=== PATIENT | female | born 1950 | race Two or more races ===

== ENCOUNTER 2017-09-02 13:08 | Emergency (ER) | payer MEDICARE, OTHER ==
[2017-09-02 13:43] LABS: ADD MAN DIFF? NO
[2017-09-02 13:49] LABS: BASO % 1 % (0-3); EOS # 0.2 x10^3/uL (0.0-0.7); EOS % 5 % (0-3); HEMATOCRIT 36.8 % (36.0-47.0); HEMOGLOBIN 12.5 g/dL (12.0-15.5); LYMPH # 0.8 x10^3/uL (1.0-4.8); LYMPH % 17 % (24-48); MEAN CORPUSCULAR HEMOGLOBIN 31 pg (25-35); MEAN CORPUSCULAR HGB CONC 34 g/dL (31-37); MEAN CORPUSCULAR VOLUME 92 fL (79-100); MONO # 0.5 x10^3/uL (0.0-1.1); MONO % 11 % (0-9); NEUT # 2.9 x10^3uL (1.8-7.7); NEUT % 66 % (31-73); PLATELET COUNT 161 x10^3/uL (140-400); RED BLOOD COUNT 4.01 x10^6/uL (3.50-5.40); RED CELL DISTRIBUTION WIDTH 13.2 % (11.5-14.5); WHITE BLOOD COUNT 4.5 x10^3/uL (4.0-11.0)
[2017-09-02 14:01] LABS: ANION GAP 10 (6-14); BLOOD UREA NITROGEN 11 mg/dL (7-20); BUN/CREATININE RATIO 18 (6-20); CALCIUM 8.2 mg/dL (8.5-10.1); CARBON DIOXIDE 27 mmol/L (21-32); CHLORIDE 102 mmol/L (98-107); CREATININE 0.6 mg/dL (0.6-1.0); GFR 100.3; GLUCOSE 102 mg/dL (70-99); POTASSIUM 3.9 mmol/L (3.5-5.1); SODIUM 139 mmol/L (136-145)
[2017-09-02 14:06] LABS: ALBUMIN 3.3 g/dL (3.4-5.0); ALK PHOS 76 U/L (46-116); AST (SGOT) 21 U/L (15-37); TOTAL BILIRUBIN 0.5 mg/dL (0.2-1.0); TOTAL PROTEIN 6.7 g/dL (6.4-8.2)
[2017-09-02 14:08] LABS: ALT (SGPT) < 6 U/L (14-59)
[2017-09-02 14:15] LABS: INFLUENZA A PATIENT POSITIVE (NEGATIVE); INFLUENZA B PATIENT NEGATIVE (NEGATIVE); OBC FLU VALID
[2017-09-02] MEDS ORDERED: OSELTAMIVIR 75 MG CAPSULE PO (14:30)
[2017-09-02] MEDS: OSELTAMIVIR 30 MG CAPSULE PO (15:03)
== END 2017-09-02 15:24 | disposition home or self-care (01) ==
LOC: ER 13:08
DX: R55 Syncope and collapse (principal); J09.X2 Influenza due to identified novel influenza A virus with other respiratory manifestations; E78.00 Pure hypercholesterolemia, unspecified; G20 Parkinson's disease; F41.9 Anxiety disorder, unspecified; Z88.0 Allergy status to penicillin
CPT/HCPCS: 36415; 71045; 80053; 85025; 87804; 87804-59; 93005; 99285-25

== ENCOUNTER 2018-05-25 10:38 | Emergency (ER) | payer MEDICARE, OTHER ==
[~2018-05-25] VITALS: Ht 149.9 cm; Wt 61.2 kg
[~2018-05-25 10:38] MED LIST: OSEL30CA PO
--- NOTE | 2018-05-25 10:56 | PHYS DOC ---
Past Medical History Past Medical History: Anxiety, Bipolar, Constipation, Depression, High Cholesterol, Hypotension, Other Additional Past Medical Histor: PARKINSONS, INSOMNIA Past Surgical History: Appendectomy, Tubal ligation, Other Additional Past Surgical Histo: R WRIST, L SHOULDER, ANKLE Alcohol Use: None Drug Use: None Adult General Chief Complaint Chief Complaint: MECHANICAL FALL HPI HPI 67-year-old female presents to ER via EMS following a mechanical fall. Patient reports she has history of Parkinson's and has a shuffling gait which caused her to lose her balance prior to the fall. Patient reports she did strike her head denies any head or neck pain. She denies any loss of consciousness, vision changes, dizziness, or lightheadedness. Patient has complaints of right upper mid arm pain which she reports she struck on her bed during the fall. Review of Systems Review of Systems Constitutional: Denies fever or chills [] Eyes: Denies change in visual acuity, redness, or eye pain [] HENT: Denies nasal congestion or sore throat [] Respiratory: Denies cough or shortness of breath [] Cardiovascular: No additional information not addressed in HPI [] GI: Denies abdominal pain, nausea, vomiting, bloody stools or diarrhea [] : Denies dysuria or hematuria [] Musculoskeletal: Denies back pain or joint pain [] Integument: Denies rash or skin lesions [] Neurologic: Denies headache, focal weakness or sensory changes [] Endocrine: Denies polyuria or polydipsia [] All other systems were reviewed and found to be within normal limits, except as documented in this note. Current Medications Current Medications Current Medications Medications (Trade) Dose Ordered Sig/Ambreen Start Time Stop Time Status Last Admin Dose Admin Acetaminophen/ Hydrocodone Bitart (Lortab 5/325) 1 tab 1X ONCE 05/25/18 11:00 05/25/18 11:01 DC 05/25/18 11:25 1 TAB Allergies Allergies Allergies Coded Allergies Type Severity Reaction Last Updated Verified Penicillins Allergy Intermediate 09/02/17 Yes Physical Exam Physical Exam Constitutional: Well developed, well nourished, no acute distress, non-toxic appearance. [] HENT: Normocephalic, atraumatic, bilateral external ears normal, oropharynx moist, no oral exudates, nose normal. [] Eyes: PERRLA, EOMI, conjunctiva normal, no discharge. [] Neck: Normal range of motion, no tenderness, supple, no stridor. [] Cardiovascular:Heart rate regular rhythm, no murmur [] Lungs & Thorax: Bilateral breath sounds clear to auscultation [] Abdomen: Bowel sounds normal, soft, no tenderness, no masses, no pulsatile masses. [] Skin: Warm, dry, no erythema, no rash. [] Back: No tenderness, no CVA tenderness. [] Extremities: No tenderness, no cyanosis, no clubbing, ROM intact, no edema. [] Neurologic: Alert and oriented X 3, normal motor function, normal sensory function, no focal deficits noted. [] Psychologic: Affect normal, judgement normal, mood normal. [] Current Patient Data Vital Signs Vital Signs Date Time Temp Pulse Resp B/P (MAP) Pulse Ox O2 Delivery O2 Flow Rate FiO2 05/25/18 11:25 20 05/25/18 10:48 97.6 59 113/66 (82) 98 Room Air 97.6 EKG EKG [] Radiology/Procedures Radiology/Procedures PROCEDURE: HUMERUS RIGHT Right humerus, 2 views, 05/25/2018: HISTORY: Pain after a fall No fracture or bony abnormality is detected. IMPRESSION: No acute right humeral abnormality is identified. Right hip, 2 views, 05/25/2018: No fracture or dislocation is identified. The hip joint is well-maintained. IMPRESSION: No acute right hip abnormality is detected. Electronically signed by: Weston Freitas MD (05/25/2018 12:02 PM) [facility] DICTATED and SIGNED BY: WESTON FREITAS MD DATE: 05/25/18 1201 Course & Med Decision Making Course & Med Decision Making Pertinent Imaging studies reviewed. (See chart for details) 1152: Discussed pt's case and xrays with Dr. Casillas who viewed images with no obvious displaced fxs. This was discussed with pt and plans for sling to rt arm. Pt encouraged to use cane/walker for stability at home. Dragon Disclaimer Dragon Disclaimer This electronic medical record was generated, in whole or in part, using a voice recognition dictation system. Departure Departure Impression: Primary Impression: Fall Additional Impressions: Injury of right upper arm Injury of right hip Disposition: HOME, SELF-CARE Condition: STABLE Referrals: COCO BECKFORD (PCP) JELLY YOON MD orthopedic doctor for follow-up Patient Instructions: Arm Sling Use, [id number], Contusion, Fall Prevention and Home Safety, Hip Injury Additional Instructions: Use walker or cane at home for walking stability. If symptoms persist follow-up with orthopedic doctor for further evaluation/ care. Tylenol and/or ibuprofen as needed for pain. Scripts Hydrocodone/Apap 5-325 (NORCO 5-325 TABLET) 1 Each Tablet 1 TAB PO PRN Q6HRS PRN for PAIN, #8 TAB 0 Refills Prov: ANDREEA HIDALGO APRN 05/25/18 Problem Qualifiers ANDREEA HIDALGO APRN May 25, 2018 10:56
[2018-05-25] MEDS ORDERED: HYDROcodone/APAP 5/325MG 1 TAB TABLET PO ONE (11:00)
[2018-05-25 12:00] VITALS: BP 110/71
--- NOTE | 2018-05-25 12:05 | RAD ---
Right humerus, 2 views, 05/25/2018: HISTORY: Pain after a fall No fracture or bony abnormality is detected. IMPRESSION: No acute right humeral abnormality is identified. Right hip, 2 views, 05/25/2018: No fracture or dislocation is identified. The hip joint is well-maintained. IMPRESSION: No acute right hip abnormality is detected. Electronically signed by: Weston Overton MD (05/25/2018 12:02 PM) [facility]
--- NOTE | 2018-05-25 12:06 | RAD ---
Right humerus, 2 views, 05/25/2018: HISTORY: Pain after a fall No fracture or bony abnormality is detected. IMPRESSION: No acute right humeral abnormality is identified. Right hip, 2 views, 05/25/2018: No fracture or dislocation is identified. The hip joint is well-maintained. IMPRESSION: No acute right hip abnormality is detected. Electronically signed by: Weston Overton MD (05/25/2018 12:02 PM) [facility]
[2018-05-25] MEDS ORDERED: HYDR-971 PO (12:11)
[2018-05-26] MEDS ORDERED: LEVO25TA4 PO (15:39)
[2018-05-26] MEDS ORDERED: ATOR20TA58 PO (17:41)
[2018-05-26] MEDS ORDERED: LORA10TA3 PO (17:41)
[2018-05-26] MEDS ORDERED: LEVO50TA5 PO (17:41)
[2018-05-26] MEDS ORDERED: CARB1TAB2 PO ×2 (17:41→17:47)
[2018-05-26] MEDS ORDERED: LITH150C PO (17:41)
[2018-05-26] MEDS ORDERED: HYDR-2758 PO (17:41)
[2018-05-26] MEDS ORDERED: DULO60CA44 PO (19:56)
[2018-05-26] MEDS ORDERED: LITH300C PO (19:56)
== END 2018-05-25 12:20 | disposition home or self-care (01) ==
LOC: ER 10:38
DX: S49.91XA Unspecified injury of right shoulder and upper arm, initial encounter (principal); S79.911A Unspecified injury of right hip, initial encounter; F31.9 Bipolar disorder, unspecified; E78.00 Pure hypercholesterolemia, unspecified; I10 Essential (primary) hypertension; G20 Parkinson's disease; Z98.51 Tubal ligation status; Z90.89 Acquired absence of other organs; Z98.890 Other specified postprocedural states; Z88.0 Allergy status to penicillin; W18.09XA Striking against other object with subsequent fall, initial encounter; Y93.89 Activity, other specified; Y92.89 Other specified places as the place of occurrence of the external cause; Y99.8 Other external cause status
CPT/HCPCS: 73060; 73502; 99284

== ENCOUNTER 2018-05-26 12:01 | Inpatient (IN) | payer MEDICARE, OTHER ==
[~2018-05-26] VITALS: Ht 151.1 cm; Wt 61.2 kg
[~2018-05-26 12:01] MED LIST changes: +HYDR-971 PO
[2018-05-26] MEDS ORDERED: HYDROcodone/APAP 10/325 1 TAB TABLET PO ONE (13:15)
--- NOTE | 2018-05-26 14:48 | RAD ---
SHOULDER 2+V RIGHT, ELBOW RIGHT 3V Clinical Indication: RIGHT SHOULDER PAIN AFTER FALL X2 DAYS AGO. Comparison: Right humerus, 2 views, prior day. Findings: There is acute traumatic nondisplaced fracture of the greater tuberosity of the right humerus. No glenohumeral dislocation. AC joint is intact. There is no acute fracture or dislocation of the elbow. There is no elbow joint effusion. No soft tissue swelling is identified. Bilateral battery packs and leads presumably for deep brain stimulator are noted in the chest. Visualized lungs are clear. IMPRESSION: Acute traumatic nondisplaced fracture of the greater tuberosity. Electronically signed by: Juan J Diaz MD (05/26/2018 2:45 PM) [facility]
--- NOTE | 2018-05-26 15:28 | PHYS DOC ---
Past Medical History Past Medical History: Anxiety, Bipolar, Constipation, Depression, High Cholesterol, Hypotension, Other Additional Past Medical Histor: PARKINSONS, INSOMNIA Past Surgical History: Appendectomy, Tubal ligation, Other Additional Past Surgical Histo: R WRIST, L SHOULDER, ANKLE, STIMULATOR IN BRAIN Alcohol Use: None Drug Use: None Adult General Chief Complaint Chief Complaint: SHOULDER INJURY HPI HPI Patient is a 67 year old Female with history of Parkinson's who presents to the ER for evaluation. Patient seen yesterday after mechanical fall with complaint of mid humerus shaft pain. Patient had x-ray that was reassuring and discharged with short course of hydrocodone. Patient reporting uncontrolled pain and presents tearful. Patient continues to report pain as mid shaft. Patient denies any distal numbness or tingling. Patient has significant decreased mobility at baseline secondary to Parkinson's. Pain is constant, sharp , 10 out of 10 Review of Systems Review of Systems Constitutional: Denies fever or chills [] Eyes: Denies change in visual acuity, redness, or eye pain [] HENT: Denies nasal congestion or sore throat [] Respiratory: Denies cough or shortness of breath [] Cardiovascular: no chest pain, no orthopnea, no lower extremity edema proximal GI: Denies abdominal pain, nausea, vomiting, bloody stools or diarrhea [] : Denies dysuria or hematuria [] Musculoskeletal:muscle and joint pain present Integument: Denies rash or skin lesions [] Neurologic: Denies headache, focal weakness or sensory changes [] Endocrine: Denies polyuria or polydipsia [] All other systems were reviewed and found to be within normal limits, except as documented in this note. Current Medications Current Medications Current Medications Medications (Trade) Dose Ordered Sig/Ambreen Start Time Stop Time Status Last Admin Dose Admin Acetaminophen/ Hydrocodone Bitart (Lortab 10/325) 1 tab 1X ONCE 05/26/18 13:15 05/26/18 13:16 DC 05/26/18 13:22 1 TAB Allergies Allergies Allergies Coded Allergies Type Severity Reaction Last Updated Verified Penicillins Allergy Intermediate 09/02/17 Yes Physical Exam Physical Exam Constitutional: Well developed, well nourished, chronically ill appearing, moderate distress, tearful HENT: Normocephalic, atraumatic, Eyes: PERRLA, EOMI, Neck: no stridor. [] Cardiovascular:Heart rate regular rhythm, no murmur [] Lungs & Thorax: Bilateral breath sounds clear to auscultation [] Abdomen: Bowel sounds normal, soft, no tenderness, no masses, no pulsatile masses. [] Skin: Warm, dry, no erythema, no rash. [] Back: No tenderness, no CVA tenderness. [] Extremities: Diffuse tenderness across R shoulder, Mid-shaft R humerus, No R elbow tenderness. Bilateral radial pulse +2/4. significant tremor bilaterally. Significant hypertonicity of bilateral upper extremities with cog wheel rigidity Neurologic: Alert and oriented X 3 Psychologic: Affect normal, judgement normal, mood normal. [] Current Patient Data Vital Signs Vital Signs Date Time Temp Pulse Resp B/P (MAP) Pulse Ox O2 Delivery O2 Flow Rate FiO2 05/26/18 13:30 60 125/64 (84) 97 Room Air 05/26/18 13:22 20 05/26/18 12:12 97.8 97.8 EKG EKG [] Radiology/Procedures Radiology/Procedures R shoulder XR IMPRESSION: Acute traumatic nondisplaced fracture of the greater tuberosity. Electronically signed by: Juan J Diaz MD (05/26/2018 2:45 PM) [facility][] R Elbow XR IMPRESSION: Acute traumatic nondisplaced fracture of the greater tuberosity. Course & Med Decision Making Course & Med Decision Making Pertinent Labs and Imaging studies reviewed. (See chart for details) []Pt with acute fracture greater tuberosity now noted on imaging today.Pain improved but continues to have painful spasms of RUE resulting uncontrolled pain 2/2 fracture. with baseline difficulty with mobility secondary to her Parkinson's disease. Patient reports uncontrolled pain at home with increased fear a fall secondary to her increased difficulty with mobility secondary to pain. Will admit for continued management of pain and evaluation. On discussion with patient and she wishes to be a DNR/DNI. Discussed with Dr. Valencia senior applications engineer for hospital service who is agreeable to admission.\ Patient not placed in sling as she feels that this position increases her pain. Dragon Disclaimer Dragon Disclaimer This electronic medical record was generated, in whole or in part, using a voice recognition dictation system. Departure Departure Impression: Primary Impression: Humerus head fracture Disposition: ADMITTED INPATIENT Admitting Physician: Angela Valencia Condition: GUARDED Referrals: COCO BECKFORD (PCP) CYRIL REED DO May 26, 2018 15:28
[2018-05-26] MEDS ORDERED: diazePAM 5 MG TABLET PO ONE (15:30)
[2018-05-26] MEDS ORDERED: LEVO25TA4 PO (15:39)
[2018-05-26 16:37] VITALS: BP_SYST 125
--- NOTE | 2018-05-26 17:36 | HP ---
ADMIT DATE: 05/26/2018 CHIEF COMPLAINT: Altered shoulder pain. HISTORY OF PRESENT ILLNESS: The patient is a pleasant 67-year-old female who fell yesterday. She presented to the ER for evaluation. Imaging study really did not confirm anything. She was sent home. Today, she represented to the hospital with increasing pain. We have more imaging now, we do see the shoulder fracture. She has a proximal humerus fracture. I discussed the case with the ER physician. We are going to admit the patient and consult Orthopedics. PAST MEDICAL HISTORY: Parkinson's, bipolar, constipation, depression, hyperlipidemia, hypotension, insomnia, tubal ligation, right wrist surgery, left shoulder surgery, ankle surgery, stimulator in the brain. ALLERGIES: PENICILLIN. FAMILY HISTORY: Hypertension. SOCIAL HISTORY: She is . She does not drink, smoke or take drugs. MEDICATIONS: Reviewed, please refer to the MRAD. REVIEW OF SYSTEMS: GENERAL: No history of weight change, weakness or fevers. SKIN: No bruising, hair changes or rashes. EYES: No blurred, double or loss of vision. NOSE AND THROAT: No history of nosebleeds, hoarseness or sore throat. HEART: No history of palpitations, chest pain or shortness of breath on exertion. LUNGS: Denies cough, hemoptysis, wheezing or shortness of breath. GASTROINTESTINAL: Denies changes in appetite, nausea, vomiting, diarrhea or constipation. GENITOURINARY: No history of frequency, urgency, hesitancy or nocturia. NEUROLOGIC: Denies history of numbness, tingling, tremor or weakness. PSYCHIATRIC: No history of panic, anxiety or depression. ENDOCRINE: No history of heat or cold intolerance, polyuria or polydipsia. EXTREMITIES: She complains of right arm pain and shoulder pain. PHYSICAL EXAMINATION: VITAL SIGNS: Temperature afebrile, pulse 60, respirations 20, blood pressure 117/59, O2 sat 95% on room air. GENERAL: She is alert, cooperative, little anxious. Her is present. He is good support for her. HEART: Normal S1, S2. LUNGS: Clear. ABDOMEN: Soft. EXTREMITIES: The right arm is tender to touch at the shoulder. ENDOCRINE: No thyromegaly. LYMPHATICS: No cervical nodes. HEMATOPOIETIC: No bruising. NEUROLOGICAL: She is shaking. LABORATORY DATA: Pending. ASSESSMENT AND PLAN: Fall with right shoulder fracture. The patient has been admitted. We will consult Orthopedics, p.r.n. narcotics, p.r.n. Valium. Continue home medicines, frequent labs, PT, OT. DELMA ARMAS DO DR: KANDACE/kennedy JOB#: [id number] / [id number]
[2018-05-26] MEDS ORDERED: LORA10TA3 PO (17:41)
[2018-05-26] MEDS ORDERED: LITH150C PO (17:41)
[2018-05-26] MEDS ORDERED: ATOR20TA58 PO (17:41)
[2018-05-26] MEDS ORDERED: LEVO50TA5 PO (17:41)
[2018-05-26] MEDS ORDERED: CARB1TAB2 PO ×2 (17:41→17:47)
[2018-05-26] MEDS ORDERED: HYDR-2758 PO (17:41)
[2018-05-26 19:25] VITALS: BP 121/57
[2018-05-26] MEDS: MORPHINE SULFATE 2 MG/ML VIAL. IV PRN (19:25)
[2018-05-26] MEDS ORDERED: LITH300C PO (19:56)
[2018-05-26] MEDS ORDERED: DULO60CA44 PO (19:56)
[2018-05-26] MEDS: CETIRIZINE HCL 10 MG TABLET. PO SCH (21:18)
[2018-05-26] MEDS: DULoxetine HCL 30 MG CAPSULE.DR PO SCH (21:18)
[2018-05-26] MEDS: LITHIUM CARBONATE 300 MG CAPSULE PO SCH (21:18)
[2018-05-26] MEDS: ATORVASTATIN CALCIUM 20 MG TABLET PO SCH (21:18)
[2018-05-26] MEDS: CARBIDOPA/LEVODOPA 25/100MG TABLET PO SCH (21:26)
[2018-05-26 23:27] VITALS: BP 102/48
[2018-05-27] MEDS: MORPHINE SULFATE 2 MG/ML VIAL. IV PRN ×2 (00:28→04:24)
--- NOTE | 2018-05-27 01:56 | CONS ---
DATE OF CONSULTATION: 05/26/2018 REASON FOR CONSULTATION: Right shoulder pain. REQUESTING PHYSICIAN: Dr. Valencia. HISTORY OF PRESENT ILLNESS: The patient is a 67-year-old female who was diagnosed with Parkinson's disease many years ago. She actually presented to the Emergency Room for evaluation after a fall with right shoulder pain. She has had several falls in the past due to her instability and balance problems with the Parkinson's, but this is the first time that she really broke something. She has had gait problems for quite some time. Normally, she does not walk with any type of assistive device that she said that tended to get into her way as well. In terms of the treatment of the Parkinson's, she had an implantable device that it worked fairly well on her tremors that are primarily on the left side. She also indicates that she had some dyskinesia and problems that necessitated adjustment of the device and her tremors have since returned. She says even prior to that; however, her right arm has been weak and has been less functional. Currently, she has significant tremor in the arm, trying to feed herself with her left hand as I came in for examination. She said initially, it was incorrectly discerned that she did not have a fracture and later came back with more imaging showing proximal humerus fracture. PAST MEDICAL HISTORY: Significant for Parkinson's disease, bipolar disorder, depression, insomnia, hyperlipidemia, hypotension, history of some constipation. PAST SURGICAL HISTORY: Significantly for the brain stimulator, previous ankle and left shoulder surgery, right wrist surgery, tubal ligation. ALLERGIES: INCLUDE PENICILLIN. MEDICATIONS: List is removed. FAMILY HISTORY: High blood pressure. SOCIAL HISTORY: She is , lives at home. Denies smoking, alcohol or drug use. REVIEW OF SYSTEMS: Really this is covered by the above. She denies any head injury or worsening of her dyskinesia or tremor, status post a fall. Her biggest problem is being unable to use the right arm and significant for the right shoulder pain. She also again indicates some increased tremors after the last adjustment of the brain stimulator, although it did help the dyskinesia issues. She denies any head injury, radiating pain in the extremities and no lower extremity weakness. PHYSICAL EXAMINATION: EXTREMITIES: She is tender on palpation over the right proximal humerus. This is worse with any movement, although she is able to flex and extend her elbow with the arm at the side with some effort because it is weak overall in the right upper extremity. She does have a little bit of intentional tremor present on the right side, but much more severe on the left. Left is currently used as her more dominant arm, but she has otherwise normal motion stability of shoulder, elbow and wrist bilaterally. Well-healed incision on her right wrist from previous surgery as well. No instability, malalignment or tenderness at the joints of the bilateral hips, knees and ankles. IMAGING: X-rays show a nondisplaced proximal humerus fracture, primarily involving the greater tuberosity. Glenohumeral joint is otherwise well maintained. IMPRESSION: 1. Nondisplaced right proximal humerus fracture. 2. Parkinsonism with balance difficulties. TREATMENT PLAN: I had gone over with her the fact that I expect nonoperative treatment provided that she does not have late displacement of her fracture and also that she can use a sling for comfort, but can also use her arm, especially with the elbow at the side to help do fine motor use that may help her eating or other fine motor activities that she needs to do. Finally, we talked about something that may help assist her in terms of her balance issues and stability. I noted that this may not work as well initially as it may down the line after further healing of her right shoulder; however, in terms of a walker, which she was unable to really negotiate before and gotten her way, I talked about the possibility and maybe we could test a walker with a platform attachments on both arms, such that she could rest her forearms down and grasp that may inhibit some of the tremor and instability issues that she had had with a walker, getting away from her, hopefully physical therapy could sort that out and work with her and see if that will again help with some of her instability issues and hopefully decrease some of her fall risk issues in the future. I told her it would probably be a few weeks with the shoulder pain calming down over that time and allowing her increased activity. I would probably like to see her back in about 2 weeks to get repeat x-rays to hopefully evaluate for any displacement and early healing of the fracture. She appreciated the suggestion in terms of the walker and all her questions were answered. I would be happy to follow along otherwise as needed. JELLY YOON MD DR: FIONA/kennedy JOB#: [id number] / [id number]
[2018-05-27 03:12] VITALS: BP 110/52
[2018-05-27] MEDS: LEVOTHYROXINE 50 MCG TABLET PO SCH (06:00)
[2018-05-27] MEDS: CARBIDOPA/LEVODOPA 25/100MG TABLET PO SCH ×9 (06:00→21:57)
[2018-05-27 07:00] VITALS: BP 104/61
[2018-05-27] MEDS: LITHIUM CARBONATE 150 MG CAPSULE. PO SCH (08:30)
[2018-05-27] MEDS ORDERED: ONDANSETRON ODT 4 MG TAB.RAPDIS. PO PRN (09:15)
[2018-05-27] MEDS ORDERED: ONDANSETRON PF 4 MG/2 ML VIAL. IV PRN (09:15)
[2018-05-27] MEDS ORDERED: ACETAMINOPHEN/CODEINE 300/30MG TABLET. PO PRN (09:15)
[2018-05-27] MEDS ORDERED: ACETAMINOPHEN 500 MG TABLET PO PRN (09:15)
[2018-05-27 11:00] VITALS: BP 109/50
--- NOTE | 2018-05-27 11:03 | PDOC ---
PROGRESS NOTES Chief Complaint Chief Complaint Right humeral fracture-nonsurgical Parkinson's disease with shakes-status post brain stimulation by [facility]-follows with a known parkinsonian specialist at [facility] for Parkinson's disease, bipolar disorder, depression, insomnia, hyperlipidemia, hypotension, history of some constipation. History of Present Illness History of Present Illness NOn surgical right arm humeral fx-per ortho Patient has chronic shaking from parkinsons, multiple falls from Parkinsons 20 years-some needing orthopedics intervention Already follows up with Parkinson specialist-on Sinemet and s.p brain stimulation Still requiring IV pain medicines plan: Trial of by mouth pain meds PT OT If doing well with by mouth pain meds today and after PT OT assessment possible discharge tomorrow pending PT evaluation Vitals Vitals Vital Signs Date Time Temp Pulse Resp B/P (MAP) Pulse Ox O2 Delivery O2 Flow Rate FiO2 05/27/18 08:00 Room Air 05/27/18 07:00 97.9 82 16 104/61 (75) 90 97.9 Physical Exam General: Alert, Oriented X3, Cooperative, No acute distress Heart: Regular rate, Normal S1, Normal S2, No murmurs Lungs: Clear Abdomen: Normal bowel sounds, Soft, No tenderness, Other (shaking of the left hand) Extremities: No clubbing, No cyanosis, No edema, Normal pulses Skin: No rashes, No breakdown, No significant lesion Review of Systems Review of Systems Right arm pain otherwise rest of 14 point systems ROS negative Assessment and Plan Assessmemt and Plan Problems Medical Problems: (1) Humerus head fracture Status: Acute Comment Review of Relevant I have reviewed the following items suzette (where applicable) has been applied. Medications Current Medications Acetaminophen/ Hydrocodone Bitart (Lortab 10/325) 1 tab 1X ONCE PO Last administered on 05/26/18at 13:22; Start 05/26/18 at 13:15; Stop 05/26/18 at 13 :16; Status DC Diazepam (Valium) 2.5 mg 1X ONCE PO Last administered on 05/26/18at 15:29; Start 05/26/18 at 15:30; Stop 05/26/18 at 15:31; Status DC Morphine Sulfate (Morphine Sulfate) 2 mg PRN Q2HR PRN IV PAIN Last administered on 05/27/18at 04:24; Start 05/26/18 at 15:30; Stop 05/27/18 at 15 :29 Influenza Virus Vaccine (Afluria Trivalent [id number] Syringe) 0.5 ml ONCE ONCE VAX IM Last administered on 05/26/18at 19:30; Start 05/27/18 at 09:00; Stop 05/27/18 at 09:01; Status DC Atorvastatin Calcium (Lipitor) 20 mg QHS PO Last administered on 05/26/18at 21: 18; Start 05/26/18 at 21:00 Carbidopa/Levodopa (Sinemet 25/100) 1 tab Q2HR W/A PO Last administered on at 10:36; Start 05/26/18 at 22:00 [place] Carbonate ([place] Carbonate) 150 mg DAILY PO Last administered on at 08:30; Start 05/27/18 at 09:00 Duloxetine HCl (Cymbalta) 60 mg QHS PO Last administered on 05/26/18at 21:18; Start 05/26/18 at 21:30 Levothyroxine Sodium (Synthroid) 50 mcg DAILY06 PO Last administered on at 06:00; Start 05/27/18 at 06:00 [place] Carbonate 300 mg QHS PO Last administered on 05/26/18at 21:18; Start 05/26/18 at 21:00 Cetirizine HCl (ZyrTEC) 10 mg QHS PO Last administered on 05/26/18at 21:18; Start 05/26/18 at 21:00 Acetaminophen (Tylenol) 500 mg PRN Q6HRS PRN PO MILD PAIN / TEMP; Start at 09:15 Acetaminophen/ Codeine Phosphate (Tylenol #3) 1 tab PRN Q6HRS PRN PO MODERATE PAIN; Start 05/27/18 at 09:15 Ondansetron HCl (Zofran) 4 mg PRN Q6HRS PRN IV NAUSEA/VOMITING; Start at 09:15 Ondansetron HCl (Zofran Odt) 4 mg PRN Q6HRS PRN PO NAUSEA/VOMITING; Start at 09:15 Acetaminophen/ Hydrocodone Bitart (Lortab 5/325) 1 tab PRN Q6HRS PRN PO SEVERE PAIN; Start 05/27/18 at 09:15 Active Scripts Active Reported Duloxetine Hcl 60 Mg Capsule.dr 60 Mg PO HS [place] Carbonate 300 Mg Capsule 1 Cap PO HS Sinemet 25-100 Mg Tablet (Carbidopa/Levodopa) 1 Each Tablet 1 Tab PO Q2HR W/A Hydrocodone-Apap 5-325 (Hydrocodone Bit/Acetaminophen) 1 Each Tablet 1 Tab PO PRN Q6HRS PRN Levothyroxine Sodium 50 Mcg Tablet 1 Tab PO DAILYAC Atorvastatin Calcium 20 Mg Tablet 1 Tab PO QHS Loratadine 10 Mg Tablet 10 Mg PO QHS [place] Carbonate 150 Mg Capsule 1 Cap PO DAILY Vitals/I & O Vital Sign - Last 24 Hours 05/26/18 05/26/18 05/26/18 05/26/18 12:12 13:00 13:22 13:30 Temp 97.8 97.8 Pulse 64 60 60 Resp 18 20 B/P (MAP) 131/67 (88) 117/59 (78) 125/64 (84) Pulse Ox 96 95 96 97 O2 Delivery Room Air Room Air Room Air Room Air 05/26/18 05/26/18 05/26/18 05/26/18 14:00 14:30 15:00 15:30 Pulse 68 62 64 68 B/P (MAP) 107/55 (72) 113/58 (76) 127/61 (83) 143/86 (105) Pulse Ox 95 98 98 98 O2 Delivery Room Air Room Air Room Air Room Air 05/26/18 05/26/18 05/26/18 05/26/18 16:37 19:25 19:25 20:00 Temp 97.5 97.5 97.5 97.5 Pulse 78 68 Resp 18 18 B/P (MAP) 125/ 121/57 (78) Pulse Ox 95 94 O2 Delivery Room Air Room Air Room Air Room Air 05/26/18 05/27/18 05/27/18 05/27/18 23:27 00:28 03:12 04:24 Temp 97.7 97.6 97.7 97.6 Pulse 74 72 Resp 20 17 17 B/P (MAP) 102/48 (66) 110/52 (71) Pulse Ox 96 96 O2 Delivery Room Air Room Air Room Air Room Air 05/27/18 05/27/18 05/27/18 04:59 07:00 08:00 Temp 97.9 97.9 Pulse 82 Resp 17 16 B/P (MAP) 104/61 (75) Pulse Ox 90 O2 Delivery Room Air Room Air Room Air Intake and Output 05/26/18 05/26/18 05/27/18 15:00 23:00 07:00 Intake Total 180 ml 360 ml Balance 180 ml 360 ml EDGARD ESQUIVEL MD May 27, 2018 11:03
[2018-05-27] MEDS: HYDROcodone/APAP 5/325MG 1 TAB TABLET PO PRN ×2 (11:06→19:55)
[2018-05-27 15:00] VITALS: BP 109/62
[2018-05-27 19:00] VITALS: BP 155/64
[2018-05-27] MEDS: CETIRIZINE HCL 10 MG TABLET. PO SCH (19:54)
[2018-05-27] MEDS: DULoxetine HCL 30 MG CAPSULE.DR PO SCH (19:55)
[2018-05-27] MEDS: ATORVASTATIN CALCIUM 20 MG TABLET PO SCH (19:55)
[2018-05-27] MEDS: LITHIUM CARBONATE 300 MG CAPSULE PO SCH (19:58)
[2018-05-27 22:42] VITALS: BP 117/51
[2018-05-28 03:00] VITALS: BP 111/54
[2018-05-28] MEDS: LEVOTHYROXINE 50 MCG TABLET PO SCH (05:48)
[2018-05-28] MEDS: CARBIDOPA/LEVODOPA 25/100MG TABLET PO SCH ×9 (05:48→22:31)
[2018-05-28] MEDS: HYDROcodone/APAP 5/325MG 1 TAB TABLET PO PRN ×3 (05:48→20:43)
[2018-05-28 07:00] VITALS: BP 107/52
[2018-05-28] MEDS: LITHIUM CARBONATE 150 MG CAPSULE. PO SCH (07:57)
--- NOTE | 2018-05-28 08:35 | PDOC ---
PROGRESS NOTES Chief Complaint Chief Complaint Right humeral fracture-nonsurgical Parkinson's disease with shakes-status post brain stimulation by -follows with a known parkinsonian specialist at [facility] for Parkinson's disease, bipolar disorder, depression, insomnia, hyperlipidemia, hypotension, history of some constipation. History of Present Illness History of Present Illness Admitted with right humerus fracture Non surgical right arm humeral fx-per ortho Patient has chronic shaking from parkinsons, multiple falls from Parkinsons 20 years-some needing orthopedics intervention and already follows up with Parkinson specialist-on Sinemet and s.p brain stimulation Still requiring IV pain medicines today A/p: Right humerus fracture - Trial of by mouth pain meds, PT OT Parkinson's - s/p deep brain stimulator, doing surprisingly well considering 22 year diagnosis Depression - bipolar type - continuing meds Insomnia - worse in hospital, will monitor, tv off in evening Hyperlipidemia - on statin Hypotension - likely related to PD Constipation - on stool softeners If doing well with by mouth pain meds today and after PT OT assessment possible discharge to Acute Rehab pending further PT evaluation. She does not feel safe at home with her as sole caregiver Vitals Vitals Vital Signs Date Time Temp Pulse Resp B/P (MAP) Pulse Ox O2 Delivery O2 Flow Rate FiO2 05/28/18 07:00 97.4 73 16 107/52 (70) 94 Room Air 97.4 Physical Exam General: Alert, Oriented X3, Cooperative, No acute distress Heart: Regular rate, Normal S1, Normal S2, No murmurs Lungs: Clear Abdomen: Normal bowel sounds, Soft, No tenderness, Other (shaking of the left hand) Extremities: No clubbing, No cyanosis, No edema, Normal pulses Skin: No rashes, No breakdown, No significant lesion Review of Systems Review of Systems card - no CP resp - no SOB GI - some constipation - no dysuria Assessment and Plan Assessmemt and Plan Problems Medical Problems: (1) Humerus head fracture Status: Acute Comment Review of Relevant I have reviewed the following items suzette (where applicable) has been applied. Medications Current Medications Acetaminophen/ Hydrocodone Bitart (Lortab 10/325) 1 tab 1X ONCE PO Last administered on 05/26/18at 13:22; Start 05/26/18 at 13:15; Stop 05/26/18 at 13 :16; Status DC Diazepam (Valium) 2.5 mg 1X ONCE PO Last administered on 05/26/18 15:29; Start 05/26/18 at 15:30; Stop 05/26/18 at 15:31; Status DC Morphine Sulfate (Morphine Sulfate) 2 mg PRN Q2HR PRN IV PAIN Last administered on 05/27/18 04:24; Start 05/26/18 at 15:30; Stop 05/27/18 at 15 :29; Status DC Influenza Virus Vaccine (Afluria Trivalent [id number] Syringe) 0.5 ml ONCE ONCE VAX IM Last administered on 05/26/18 19:30; Start 05/27/18 at 09:00; Stop 05/27/18 at 09:01; Status DC Atorvastatin Calcium (Lipitor) 20 mg QHS PO Last administered on 05/27/18 19: 55; Start 05/26/18 at 21:00 Carbidopa/Levodopa (Sinemet 25/100) 1 tab Q2HR W/A PO Last administered on 07:56; Start 05/26/18 at 22:00 [place] Carbonate ([place] Carbonate) 150 mg DAILY PO Last administered on 07:57; Start 05/27/18 at 09:00 Duloxetine HCl (Cymbalta) 60 mg QHS PO Last administered on 05/27/18 19:55; Start 05/26/18 at 21:30 Levothyroxine Sodium (Synthroid) 50 mcg DAILY06 PO Last administered on 05:48; Start 05/27/18 at 06:00 [place] Carbonate 300 mg QHS PO Last administered on 05/27/18 19:58; Start 05/26/18 at 21:00 Cetirizine HCl (ZyrTEC) 10 mg QHS PO Last administered on 05/27/18 19:54; Start 05/26/18 at 21:00 Acetaminophen (Tylenol) 500 mg PRN Q6HRS PRN PO MILD PAIN / TEMP; Start at 09:15 Acetaminophen/ Codeine Phosphate (Tylenol #3) 1 tab PRN Q6HRS PRN PO MODERATE PAIN Last administered on 05/27/18at 22:45; Start 05/27/18 at 09:15 Ondansetron HCl (Zofran) 4 mg PRN Q6HRS PRN IV NAUSEA/VOMITING; Start at 09:15 Ondansetron HCl (Zofran Odt) 4 mg PRN Q6HRS PRN PO NAUSEA/VOMITING; Start at 09:15 Acetaminophen/ Hydrocodone Bitart (Lortab 5/325) 1 tab PRN Q6HRS PRN PO SEVERE PAIN Last administered on 05/28/18at 05:48; Start 05/27/18 at 09:15 Active Scripts Active Reported Duloxetine Hcl 60 Mg Capsule.dr 60 Mg PO HS [place] Carbonate 300 Mg Capsule 1 Cap PO HS Sinemet 25-100 Mg Tablet (Carbidopa/Levodopa) 1 Each Tablet 1 Tab PO Q2HR W/A Hydrocodone-Apap 5-325 (Hydrocodone Bit/Acetaminophen) 1 Each Tablet 1 Tab PO PRN Q6HRS PRN Levothyroxine Sodium 50 Mcg Tablet 1 Tab PO DAILYAC Atorvastatin Calcium 20 Mg Tablet 1 Tab PO QHS Loratadine 10 Mg Tablet 10 Mg PO QHS [place] Carbonate 150 Mg Capsule 1 Cap PO DAILY Vitals/I & O Vital Sign - Last 24 Hours 05/27/18 05/27/18 05/27/18 05/27/18 11:00 11:06 15:00 19:00 Temp 98.3 97.6 97.4 98.3 97.6 97.4 Pulse 72 90 80 Resp 16 16 17 B/P (MAP) 109/50 (69) 109/62 (78) 155/64 (94) Pulse Ox 95 93 96 O2 Delivery Room Air Room Air Room Air Room Air 05/27/18 05/27/18 05/27/18 05/27/18 19:55 20:10 22:42 22:45 Temp 97.4 97.4 Pulse 74 Resp 16 17 16 B/P (MAP) 117/51 (73) Pulse Ox 93 98 98 O2 Delivery Room Air Room Air Room Air Room Air 05/27/18 05/28/18 05/28/18 05/28/18 23:45 03:00 05:48 06:48 Pulse 71 Resp 16 16 16 18 B/P (MAP) 111/54 (73) Pulse Ox 98 98 98 98 O2 Delivery Room Air Room Air Room Air Room Air 05/28/18 07:00 Temp 97.4 97.4 Pulse 73 Resp 16 B/P (MAP) 107/52 (70) Pulse Ox 94 O2 Delivery Room Air Intake and Output 05/27/18 05/27/18 05/28/18 15:00 23:00 07:00 Intake Total 570 ml Output Total 600 ml Balance -30 ml LAWRENCE AMIN MD May 28, 2018 08:35
[2018-05-28 11:00] VITALS: BP 111/64
[2018-05-28 15:34] VITALS: BP 109/39
[2018-05-28 19:00] VITALS: BP 108/45
[2018-05-28] MEDS: ATORVASTATIN CALCIUM 20 MG TABLET PO SCH (20:44)
[2018-05-28] MEDS: DULoxetine HCL 30 MG CAPSULE.DR PO SCH (20:44)
[2018-05-28] MEDS: CETIRIZINE HCL 10 MG TABLET. PO SCH (20:44)
[2018-05-28] MEDS: LITHIUM CARBONATE 300 MG CAPSULE PO SCH (21:23)
[2018-05-28 23:00] VITALS: BP 114/40
[2018-05-29 03:00] VITALS: BP 134/57
[2018-05-29] MEDS: CARBIDOPA/LEVODOPA 25/100MG TABLET PO SCH ×9 (06:05→22:00)
[2018-05-29] MEDS: LEVOTHYROXINE 50 MCG TABLET PO SCH (06:05)
[2018-05-29] MEDS: HYDROcodone/APAP 5/325MG 1 TAB TABLET PO PRN ×3 (06:08→20:27)
--- NOTE | 2018-05-29 07:37 | PDOC ---
PROGRESS NOTES Chief Complaint Chief Complaint Right humeral fracture-nonsurgical Parkinson's disease with shakes-status post brain stimulation by -follows with a known parkinsonian specialist at [facility] for Parkinson's disease, bipolar disorder, depression, insomnia, hyperlipidemia, hypotension, history of some constipation. History of Present Illness History of Present Illness Admitted with right humerus fracture Non surgical right arm humeral fx-per ortho Patient has chronic shaking from parkinsons, multiple falls from Parkinsons 20 years-some needing orthopedics intervention and already follows up with Parkinson specialist-on Sinemet and s.p brain stimulation Still requiring IV pain medicines today. Sore throat today. Less spasms in her arm A/p: Right humerus fracture - Trial of by mouth pain meds, PT OT Parkinson's - s/p deep brain stimulator, doing surprisingly well considering 22 year diagnosis Spasms - likely related to PD, improved today Depression - bipolar type - continuing meds Insomnia - worse in hospital, will monitor, tv off in evening Hyperlipidemia - on statin Hypotension - likely related to PD Constipation - on stool softeners If doing well with by mouth pain meds today/tomorrow and after PT OT assessment possible discharge to Acute Rehab pending further PT evaluation. She does not feel safe at home with her as sole caregiver Vitals Vitals Vital Signs Date Time Temp Pulse Resp B/P (MAP) Pulse Ox O2 Delivery O2 Flow Rate FiO2 05/29/18 07:10 96 Room Air 05/29/18 03:00 98.3 68 18 134/57 (82) 98.3 Physical Exam General: Alert, Oriented X3, Cooperative, No acute distress Heart: Regular rate, Normal S1, Normal S2, No murmurs Lungs: Clear Abdomen: Normal bowel sounds, Soft, No tenderness, Other (shaking of the left hand) Extremities: No clubbing, No cyanosis, No edema, Normal pulses Skin: No rashes, No breakdown, No significant lesion Assessment and Plan Assessmemt and Plan Problems Medical Problems: (1) Humerus head fracture Status: Acute Comment Review of Relevant I have reviewed the following items suzette (where applicable) has been applied. Medications Current Medications Acetaminophen/ Hydrocodone Bitart (Lortab 10/325) 1 tab 1X ONCE PO Last administered on 05/26/18at 13:22; Start 05/26/18 at 13:15; Stop 05/26/18 at 13 :16; Status DC Diazepam (Valium) 2.5 mg 1X ONCE PO Last administered on 05/26/18 15:29; Start 05/26/18 at 15:30; Stop 05/26/18 at 15:31; Status DC Morphine Sulfate (Morphine Sulfate) 2 mg PRN Q2HR PRN IV PAIN Last administered on 05/27/18 04:24; Start 05/26/18 at 15:30; Stop 05/27/18 at 15 :29; Status DC Influenza Virus Vaccine (Afluria Trivalent [id number] Syringe) 0.5 ml ONCE ONCE VAX IM Last administered on 05/26/18 19:30; Start 05/27/18 at 09:00; Stop 05/27/18 at 09:01; Status DC Atorvastatin Calcium (Lipitor) 20 mg QHS PO Last administered on 05/28/18at 20: 44; Start 05/26/18 at 21:00 Carbidopa/Levodopa (Sinemet 25/100) 1 tab Q2HR W/A PO Last administered on 14:35; Start 05/26/18 at 22:00; Stop 05/28/18 at 16:07; Status DC [place] Carbonate ([place] Carbonate) 150 mg DAILY PO Last administered on 07:57; Start 05/27/18 at 09:00 Duloxetine HCl (Cymbalta) 60 mg QHS PO Last administered on 05/28/18 20:44; Start 05/26/18 at 21:30 Levothyroxine Sodium (Synthroid) 50 mcg DAILY06 PO Last administered on at 06:05; Start 05/27/18 at 06:00 [place] Carbonate 300 mg QHS PO Last administered on 05/28/18at 21:23; Start 05/26/18 at 21:00 Cetirizine HCl (ZyrTEC) 10 mg QHS PO Last administered on 05/28/18 20:44; Start 05/26/18 at 21:00 Acetaminophen (Tylenol) 500 mg PRN Q6HRS PRN PO MILD PAIN / TEMP; Start at 09:15 Acetaminophen/ Codeine Phosphate (Tylenol #3) 1 tab PRN Q6HRS PRN PO MODERATE PAIN Last administered on 05/27/18at 22:45; Start 05/27/18 at 09:15 Ondansetron HCl (Zofran) 4 mg PRN Q6HRS PRN IV NAUSEA/VOMITING; Start at 09:15 Ondansetron HCl (Zofran Odt) 4 mg PRN Q6HRS PRN PO NAUSEA/VOMITING; Start at 09:15 Acetaminophen/ Hydrocodone Bitart (Lortab 5/325) 1 tab PRN Q6HRS PRN PO SEVERE PAIN Last administered on 05/29/18at 06:08; Start 05/27/18 at 09:15 Carbidopa/Levodopa (Sinemet 25/100) 0.5 tab Q2HR W/A PO Last administered on 05/29/18at 06:05; Start 05/28/18 at 16:15 Active Scripts Active Reported Duloxetine Hcl 60 Mg Capsule.dr 60 Mg PO HS [place] Carbonate 300 Mg Capsule 1 Cap PO HS Sinemet 25-100 Mg Tablet (Carbidopa/Levodopa) 1 Each Tablet 1 Tab PO Q2HR W/A Hydrocodone-Apap 5-325 (Hydrocodone Bit/Acetaminophen) 1 Each Tablet 1 Tab PO PRN Q6HRS PRN Levothyroxine Sodium 50 Mcg Tablet 1 Tab PO DAILYAC Atorvastatin Calcium 20 Mg Tablet 1 Tab PO QHS Loratadine 10 Mg Tablet 10 Mg PO QHS [place] Carbonate 150 Mg Capsule 1 Cap PO DAILY Vitals/I & O Vital Sign - Last 24 Hours 05/28/18 05/28/18 05/28/18 05/28/18 08:00 11:00 13:32 14:37 Temp 98.4 98.4 Pulse 72 Resp 16 16 B/P (MAP) 111/64 (80) Pulse Ox 97 94 O2 Delivery Room Air Room Air Room Air 05/28/18 05/28/18 05/28/18 05/28/18 15:34 19:00 20:00 20:43 Temp 98.2 98.2 98.2 98.2 Pulse 83 81 Resp 16 18 B/P (MAP) 109/39 (62) 108/45 (66) Pulse Ox 95 94 95 O2 Delivery Room Air Room Air Room Air Room Air 05/28/18 05/29/18 05/29/18 05/29/18 23:00 03:00 06:08 07:10 Temp 98.2 98.3 98.2 98.3 Pulse 68 68 Resp 18 18 B/P (MAP) 114/40 (64) 134/57 (82) Pulse Ox 97 96 96 O2 Delivery Room Air Room Air Room Air Room Air LAWRENCE AMIN MD May 29, 2018 07:37
[2018-05-29 07:57] VITALS: BP 135/82
[2018-05-29] MEDS: LITHIUM CARBONATE 150 MG CAPSULE. PO SCH (09:18)
[2018-05-29 11:25] VITALS: BP 106/60
[2018-05-29 15:00] VITALS: BP 121/77
[2018-05-29] MEDS ORDERED: DOCUSATE SODIUM 100 MG CAPSULE. PO PRN (16:30)
[2018-05-29] MEDS ORDERED: BENZOCAINE/MENTHOL LOZENGE. PO PRN (17:00)
[2018-05-29 19:20] VITALS: BP 114/66
[2018-05-29] MEDS: DULoxetine HCL 30 MG CAPSULE.DR PO SCH (20:27)
[2018-05-29] MEDS: CETIRIZINE HCL 10 MG TABLET. PO SCH (20:27)
[2018-05-29] MEDS: ATORVASTATIN CALCIUM 20 MG TABLET PO SCH (20:27)
[2018-05-29] MEDS: LITHIUM CARBONATE 300 MG CAPSULE PO SCH (20:27)
[2018-05-29] MEDS: BENZOCAINE/MENTHOL LOZENGE. PO PRN (20:42)
[2018-05-29 23:22] VITALS: BP 100/60
[2018-05-30 03:00] VITALS: BP 128/56
[2018-05-30] MEDS: CARBIDOPA/LEVODOPA 25/100MG TABLET PO SCH ×5 (05:54→14:31)
[2018-05-30] MEDS: LEVOTHYROXINE 50 MCG TABLET PO SCH (05:54)
[2018-05-30] MEDS: BENZOCAINE/MENTHOL LOZENGE. PO PRN ×2 (05:54→10:37)
[2018-05-30] MEDS: HYDROcodone/APAP 5/325MG 1 TAB TABLET PO PRN ×2 (05:55→12:26)
[2018-05-30 07:27] VITALS: BP 114/49
--- NOTE | 2018-05-30 07:40 | PDOC ---
PROGRESS NOTES Chief Complaint Chief Complaint Right humeral fracture-nonsurgical Parkinson's disease with shakes-status post brain stimulation by -follows with a known parkinsonian specialist at [facility] for Parkinson's disease, bipolar disorder, depression, insomnia, hyperlipidemia, hypotension, history of some constipation. History of Present Illness History of Present Illness Admitted with right humerus fracture Non surgical right arm humeral fx-per ortho Patient has chronic shaking from parkinsons, multiple falls from Parkinsons 20 years-some needing orthopedics intervention and already follows up with Parkinson specialist-on Sinemet and s.p brain stimulation No longer requiring IV pain medicines today. Sore throat today. Less spasms in her arm A/p: Right humerus fracture - Trial of by mouth pain meds, PT OT Parkinson's - s/p deep brain stimulator, doing surprisingly well considering 22 year diagnosis Spasms - likely related to PD, improved today Depression - bipolar type - continuing meds Insomnia - worse in hospital, will monitor, tv off in evening Hyperlipidemia - on statin Hypotension - likely related to PD Constipation - on stool softeners If doing well with by mouth pain meds today/tomorrow and after PT OT assessment possible discharge to Acute Rehab based on PT evaluation. She does not feel safe at home with her as sole caregiver Vitals Vitals Vital Signs Date Time Temp Pulse Resp B/P (MAP) Pulse Ox O2 Delivery O2 Flow Rate FiO2 05/30/18 07:27 98.0 71 17 114/49 (70) 94 Room Air 98.0 Physical Exam General: Alert, Oriented X3, Cooperative, No acute distress Heart: Regular rate, Normal S1, Normal S2, No murmurs Lungs: Clear Abdomen: Normal bowel sounds, Soft, No tenderness, Other (shaking of the left hand) Extremities: No clubbing, No cyanosis, No edema, Normal pulses, Other (RUE in sling, spasming) Skin: No rashes, No breakdown, No significant lesion Assessment and Plan Assessmemt and Plan Problems Medical Problems: (1) Humerus head fracture Status: Acute Comment Review of Relevant I have reviewed the following items suzette (where applicable) has been applied. Medications Current Medications Acetaminophen/ Hydrocodone Bitart (Lortab 10/325) 1 tab 1X ONCE PO Last administered on 05/26/18at 13:22; Start 05/26/18 at 13:15; Stop 05/26/18 at 13 :16; Status DC Diazepam (Valium) 2.5 mg 1X ONCE PO Last administered on 05/26/18at 15:29; Start 05/26/18 at 15:30; Stop 05/26/18 at 15:31; Status DC Morphine Sulfate (Morphine Sulfate) 2 mg PRN Q2HR PRN IV PAIN Last administered on 05/27/18at 04:24; Start 05/26/18 at 15:30; Stop 05/27/18 at 15 :29; Status DC Influenza Virus Vaccine (Afluria Trivalent [id number] Syringe) 0.5 ml ONCE ONCE VAX IM Last administered on 05/26/18at 19:30; Start 05/27/18 at 09:00; Stop 05/27/18 at 09:01; Status DC Atorvastatin Calcium (Lipitor) 20 mg QHS PO Last administered on 05/29/18at 20: 27; Start 05/26/18 at 21:00 Carbidopa/Levodopa (Sinemet 25/100) 1 tab Q2HR W/A PO Last administered on at 14:35; Start 05/26/18 at 22:00; Stop 05/28/18 at 16:07; Status DC [place] Carbonate ([place] Carbonate) 150 mg DAILY PO Last administered on 09:18; Start 05/27/18 at 09:00 Duloxetine HCl (Cymbalta) 60 mg QHS PO Last administered on 05/29/18 20:27; Start 05/26/18 at 21:30 Levothyroxine Sodium (Synthroid) 50 mcg DAILY06 PO Last administered on at 05:54; Start 05/27/18 at 06:00 [place] Carbonate 300 mg QHS PO Last administered on 05/29/18at 20:27; Start 05/26/18 at 21:00 Cetirizine HCl (ZyrTEC) 10 mg QHS PO Last administered on 05/29/18 20:27; Start 05/26/18 at 21:00 Acetaminophen (Tylenol) 500 mg PRN Q6HRS PRN PO MILD PAIN / TEMP; Start at 09:15 Acetaminophen/ Codeine Phosphate (Tylenol #3) 1 tab PRN Q6HRS PRN PO MODERATE PAIN Last administered on 05/27/18at 22:45; Start 05/27/18 at 09:15 Ondansetron HCl (Zofran) 4 mg PRN Q6HRS PRN IV NAUSEA/VOMITING; Start at 09:15 Ondansetron HCl (Zofran Odt) 4 mg PRN Q6HRS PRN PO NAUSEA/VOMITING; Start at 09:15 Acetaminophen/ Hydrocodone Bitart (Lortab 5/325) 1 tab PRN Q6HRS PRN PO SEVERE PAIN Last administered on 05/30/18at 05:55; Start 05/27/18 at 09:15 Carbidopa/Levodopa (Sinemet 25/100) 0.5 tab Q2HR W/A PO Last administered on 05/30/18at 05:54; Start 05/28/18 at 16:15 Throat Lozenges (Cepacol Sore Throat Lozenge) 1 andie PRN Q2HRS PRN PO SORE THROAT Last administered on 05/30/18at 05:54; Start 05/29/18 at 16:30 Docusate Sodium (Colace) 100 mg PRN DAILY PRN PO CONSTIPATION; Start 05/29/18 at 16:30 Throat Lozenges (Cepacol Sore Throat Lozenge) 1 andie PRN Q2HRS PRN PO SORE THROAT; Start 05/29/18 at 17:00 Active Scripts Active Reported Duloxetine Hcl 60 Mg Capsule.dr 60 Mg PO HS [place] Carbonate 300 Mg Capsule 1 Cap PO HS Sinemet 25-100 Mg Tablet (Carbidopa/Levodopa) 1 Each Tablet 1 Tab PO Q2HR W/A Hydrocodone-Apap 5-325 (Hydrocodone Bit/Acetaminophen) 1 Each Tablet 1 Tab PO PRN Q6HRS PRN Levothyroxine Sodium 50 Mcg Tablet 1 Tab PO DAILYAC Atorvastatin Calcium 20 Mg Tablet 1 Tab PO QHS Loratadine 10 Mg Tablet 10 Mg PO QHS [place] Carbonate 150 Mg Capsule 1 Cap PO DAILY Vitals/I & O Vital Sign - Last 24 Hours 05/29/18 05/29/18 05/29/18 05/29/18 07:57 11:25 12:08 13:10 Temp 98.7 98.2 98.7 98.2 Pulse 89 70 Resp 18 18 B/P (MAP) 135/82 (99) 106/60 (75) Pulse Ox 97 95 95 O2 Delivery Room Air Room Air Room Air 05/29/18 05/29/18 05/29/18 05/29/18 15:00 19:20 20:20 20:27 Temp 98.6 98.5 98.6 98.5 Pulse 72 78 Resp 18 18 16 B/P (MAP) 121/77 (92) 114/66 (82) Pulse Ox 95 95 O2 Delivery Room Air Room Air Room Air Room Air 05/29/18 05/30/18 05/30/18 05/30/18 23:22 03:00 05:55 06:55 Temp 98.6 98.2 98.6 98.2 Pulse 78 61 Resp 18 18 16 16 B/P (MAP) 100/60 (73) 128/56 (80) Pulse Ox 95 92 O2 Delivery Room Air Room Air Room Air Room Air 05/30/18 07:27 Temp 98.0 98.0 Pulse 71 Resp 17 B/P (MAP) 114/49 (70) Pulse Ox 94 O2 Delivery Room Air Intake and Output 05/29/18 05/29/18 05/30/18 15:00 23:00 07:00 Intake Total 400 ml 450 ml Balance 400 ml 450 ml LAWRENCE AMIN MD May 30, 2018 07:40
[2018-05-30] MEDS: LITHIUM CARBONATE 150 MG CAPSULE. PO SCH (07:57)
[2018-05-30 10:48] VITALS: BP 101/53
[2018-05-30] MEDS ORDERED: DOCU-109 PO (13:40)
--- NOTE | 2018-05-30 13:42 | DISCH ---
DISCHARGE DISCHARGE INFORMATION: DISCHARGE DATE: May 30, 2018 FINAL DIAGNOSIS Problems Medical Problems: (1) Humerus head fracture Status: Acute CONDITION ON DISCHARGE: Stable CODE STATUS: Code Status: DNR/DNI SHELTER: SNF STAY <30 DAYS: Yes HOSPICE: HOSPICE: No HOSPICE EVAL & TREAT: No LTAC: ADMIT TO LTAC: No POST DISCHARGE ORDERS: ACTIVITY ORDERS: No restrictions, Activity as tolerated, Other, see below ( Right arm to sling for humerus head fracture) WEIGHT BEARING STATUS: Full weight bearing, As tolerated DIET AFTER DISCHARGE: Regular WOUND/INCISION CARE: No wound care needed OTHER ORDERS: Right arm sling CHECKS AFTER DISCHARGE: CHECKS AFTER DISCHARGE: Check blood press - daily FOLLOW-UP: ADDITIONAL FOLLOW-UP: Dr. Mueller in 2 weeks for f/u Xray TREATMENT/EQUIPMENT ORDERS: ADAPTIVE EQUIPMENT NEEDED: Cane Physical Therapy For: Evalulation/Treatment Occupational Therapy For: Evaluation/Treatment DISCHARGE MEDICATIONS: Home Meds Active Scripts Docusate Sodium (COLACE) 100 Mg Capsule, 100 MG PO PRN DAILY PRN for CONSTIPATION for 30 Days, #60 CAP Prov:LAWRENCE AMIN MD 05/30/18 Reported Medications Duloxetine Hcl (DULOXETINE HCL) 60 Mg Capsule.dr, 60 MG PO HS, CAP 05/26/18 [place] Carbonate (LITHIUM CARBONATE) 300 Mg Capsule, 1 CAP PO HS, #60 CAP 2 Refills 05/26/18 Carbidopa/Levodopa (SINEMET 25-100 MG TABLET) 1 Each Tablet, 1 TAB PO Q2HR W/A, TAB 05/26/18 Hydrocodone Bit/Acetaminophen (HYDROCODONE-APAP 5-325 ) 1 Each Tablet, 1 TAB PO PRN Q6HRS PRN for PAIN, TAB 0 Refills 05/26/18 Levothyroxine Sodium (LEVOTHYROXINE SODIUM) 50 Mcg Tablet, 1 TAB PO DAILYAC, # 30 TAB 5 Refills 05/26/18 Atorvastatin Calcium (ATORVASTATIN CALCIUM) 20 Mg Tablet, 1 TAB PO QHS, #30 TAB 5 Refills 05/26/18 Loratadine (LORATADINE) 10 Mg Tablet, 10 MG PO QHS, TAB 05/26/18 [place] Carbonate (LITHIUM CARBONATE) 150 Mg Capsule, 1 CAP PO DAILY, #60 CAP 2 Refills 05/26/18 LAWRENCE AMIN MD May 30, 2018 13:42
--- NOTE | 2018-05-30 14:32 | PDOC3 ---
Discharge Summary Visit Information Date of Admission: May 26, 2018 Date of Discharge: May 30, 2018 Admitting Diagnosis: Right humerus head fracture Final Diagnosis Problems Medical Problems: (1) Humerus head fracture Status: Acute Brief Hospital Course Allergies Allergies Coded Allergies Type Severity Reaction Last Updated Verified Penicillins Allergy Intermediate 09/02/17 Yes Vital Signs Vital Signs Date Time Temp Pulse Resp B/P (MAP) Pulse Ox O2 Delivery O2 Flow Rate FiO2 05/30/18 10:48 97.5 68 16 101/53 (69) 93 Room Air 97.5 Brief Hospital Course Admitted with right humerus fracture Non surgical right arm humeral fx-per ortho Patient has chronic shaking from parkinsons, multiple falls from Parkinsons 20 years-some needing orthopedics intervention and already follows up with [facility] Parkinson specialist-on Sinemet and s.p brain stimulation No longer requiring IV pain medicines today. Sore throat today. Less spasms in her arm A/p: Right humerus fracture - Trial of by mouth pain meds, PT OT Parkinson's - s/p deep brain stimulator, doing surprisingly well considering 22 year diagnosis Spasms - likely related to PD, improved today Depression - bipolar type - continuing meds Insomnia - worse in hospital, will monitor, tv off in evening Hyperlipidemia - on statin Hypotension - likely related to PD Constipation - on stool softeners If doing well with by mouth pain meds today/tomorrow and after PT OT assessment possible discharge to Acute Rehab based on PT evaluation. She does not feel safe at home with her as sole caregiver Discharge Information Condition at Discharge: Improved Follow Up: Weeks (2) Disposition/Orders: D/C to Another Facility Scheduled Atorvastatin Calcium (Atorvastatin Calcium) 20 Mg Tablet, 1 TAB PO QHS, #30 Ref 5 (Reported) Entered as Reported by: MALU BILLS on 05/26/181740 Last Taken: Unknown Dose on 05/25/18 2100 Last Action: Continued on 05/26 by TAMARA PAL Carbidopa/Levodopa (Sinemet 25-100 Mg Tablet) 1 Each Tablet, 1 TAB PO Q2HR W/A, (Reported) Entered as Reported by: MALU BILLS on 05/26/181746 Last Taken: Unknown Dose on 05/25/18 1800 Last Action: Continued on 05/26 by TAMARA PAL Duloxetine Hcl (Duloxetine Hcl) 60 Mg Capsule.dr, 60 MG PO HS, (Reported) Entered as Reported by: TAMARA PAL on 05/26/181955 Last Action: Converted on 05/26/182040 by TAMARA PAL Levothyroxine Sodium (Levothyroxine Sodium) 50 Mcg Tablet, 1 TAB PO DAILYAC, # 30 Ref 5 (Reported) Entered as Reported by: MALU BILLS on 05/26/181740 Last Taken: Unknown Dose on 05/25/18 0600 Last Action: Converted on 05/26 by TAMARA PAL [place] Carbonate ([place] Carbonate) 150 Mg Capsule, 1 CAP PO DAILY, #60 Ref 2 (Reported) Entered as Reported by: MALU BILLS on 05/26/181740 Last Taken: Unknown Dose on 05/25/18 0800 Last Action: Continued on 05/26 by TAMARA PAL [place] Carbonate ([place] Carbonate) 300 Mg Capsule, 1 CAP PO HS, #60 Ref 2 ( Reported) Entered as Reported by: TAMARA PAL on 05/26/181955 Last Action: Converted on 05/26/182040 by TAMARA PAL Loratadine (Loratadine) 10 Mg Tablet, 10 MG PO QHS, (Reported) Entered as Reported by: MALU BILLS on 05/26/181740 Last Taken: Unknown Dose on 05/25/18 2100 Last Action: Converted on 05/26 by TAMARA PAL Scheduled PRN Docusate Sodium (Colace) 100 Mg Capsule, 100 MG PO PRN DAILY PRN for CONSTIPATION for 30 Days, #60 Prescribed by: LAWRENCE AMIN MD on 05/30/18 1340 Hydrocodone Bit/Acetaminophen (Hydrocodone-Apap 5-325 ) 1 Each Tablet, 1 TAB PO PRN Q6HRS PRN for PAIN, Ref 0 (Reported) Entered as Reported by: MALU BILLS on 05/26/181740 Last Action: Continued on 05/27/18 09 by LAWRENCE GUERIN MD May 30, 2018 14:32
== END 2018-05-30 15:55 | DRG 563 ==
LOC: ER 12:01 → 4 NORTH 15:29 → UNDODISIN 05-27 18:20
PROVIDERS: ADMIT Internal Medicine; ATTEND Internal Medicine
DX: S42.254A Nondisplaced fracture of greater tuberosity of right humerus, initial encounter for closed fracture (principal); G20 Parkinson's disease; E78.00 Pure hypercholesterolemia, unspecified; E78.5 Hyperlipidemia, unspecified; F31.9 Bipolar disorder, unspecified; G24.9 Dystonia, unspecified; G47.00 Insomnia, unspecified; K59.00 Constipation, unspecified; R29.6 Repeated falls; F41.9 Anxiety disorder, unspecified; I95.9 Hypotension, unspecified; J02.9 Acute pharyngitis, unspecified; Z96.89 Presence of other specified functional implants; Z66 Do not resuscitate; W18.39XA Other fall on same level, initial encounter; Y93.89 Activity, other specified; Y92.89 Other specified places as the place of occurrence of the external cause; Y99.8 Other external cause status; Z82.49 Family history of ischemic heart disease and other diseases of the circulatory system; Z90.49 Acquired absence of other specified parts of digestive tract; Z98.51 Tubal ligation status; Z79.899 Other long term (current) drug therapy; Z88.0 Allergy status to penicillin
CPT/HCPCS: 73030; 73060; 73080; 73502; 90471; 90756; J2270; 97110; 97116; 97530; 97535; 99285-25; Q2035

== ENCOUNTER 2018-11-18 10:24 | Emergency (ER) | payer MEDICARE, OTHER ==
[~2018-11-18] VITALS: Ht 152.4 cm; Wt 68.0 kg
[~2018-11-18 10:24] MED LIST changes: +ATOR20TA58 PO; +CARB1TAB2 PO; +DOCU-109 PO; +DULO60CA44 PO; +HYDR-2761 PO; +HYDR-3164 PO; -HYDR-971 PO; +LEVO25TA4 PO; +LEVO50TA5 PO; +LITH150C PO; +LITH300C PO; +LORA10TA3 PO
[2018-11-18 11:00] VITALS: BP 138/61
--- NOTE | 2018-11-18 11:47 | PHYS DOC ---
Past Medical History Past Medical History: Anxiety, Bipolar, Constipation, Depression, High Cholesterol, Hypothyroid, Hypotension, Other Additional Past Medical Histor: PARKINSONS, INSOMNIA Past Surgical History: Appendectomy, Tubal ligation, Other Additional Past Surgical Histo: R WRIST, L SHOULDER, ANKLE, STIMULATOR IN BRAIN , BREAST SX Alcohol Use: None Drug Use: None Adult General Chief Complaint Chief Complaint: MECHANICAL FALL HPI HPI Patient is a 68 year old female who presents to the ER after for evaluation after fall. Patient with history of Parkinson's. She is ambulatory but has frequent episodes of gait instability and falls. Patient states that while bending over she acutely lost her balance and fell. Patient does state that she hit her head. Denies any headache. Largely complaint of carpet burn to the left side of face and left upper extremity. No pain with range of motion of left upper extremity. Does feel tdap up-to-date. No LOC. No neck pain. Review of Systems Review of Systems Constitutional: Denies fever or chills [] Eyes: Denies change in visual acuity, redness, or eye pain [] Respiratory: Denies cough or shortness of breath [] Cardiovascular:No chest pain, no LE edema , no palpitations GI: Denies abdominal pain, nausea, vomiting, : Denies dysuria or hematuria [] Musculoskeletal: Denies back pain or joint pain [] Integument: Denies rash or skin lesions [] Neurologic: Denies headache, focal weakness or sensory changes [] Endocrine: Denies polyuria or polydipsia [] All other systems were reviewed and found to be within normal limits, except as documented in this note. Allergies Allergies Allergies Coded Allergies Type Severity Reaction Last Updated Verified Penicillins Allergy Intermediate 09/02/17 Yes Physical Exam Physical Exam Constitutional: Well developed, well nourished, no acute distress, non-toxic appearance. [] HENT: Normocephalic, atraumatic, no palpable hematoma scalp. Eyes: PERRLA, EOMI, Neck: No midline spinal tenderness, normal range of motion, Cardiovascular:Heart rate regular rhythm, no murmur [] Lungs & Thorax: Bilateral breath sounds clear to auscultation [] Abdomen: Bowel sounds normal, soft, no tenderness, no masses, no pulsatile masses. [] Skin: Superficial abrasions to nose, left cheek, left elbow, left proximal arm. Back: No tenderness, no CVA tenderness. [] Extremities: No obvious trauma or deformity to left upper extremity. Patient does not have any bony tenderness to left shoulder, elbow, forearm, wrist. Some mild cognitive wheel rigidity on range of motion of elbow. Patient otherwise has very mildly chronically decreased range of motion of joints of left upper extremity. Left radial pulse +2 out of 4. Distal sensation intact. Left oil heat technician strength 5 out of 5. Mild to moderate resting tremor that increases with movement. Neurologic: Alert and oriented X 3, no focal deficits noted. Mild cogwheel rigidity, mild to moderate resting tremor. Psychologic: Affect normal, judgement normal, mood normal. [] Current Patient Data Vital Signs Vital Signs Date Time Temp Pulse Resp B/P (MAP) Pulse Ox O2 Delivery O2 Flow Rate FiO2 11/18/18 11:30 68 16 99 11/18/18 10:24 98.1 133/68 (89) Room Air 98.1 EKG EKG [] Radiology/Procedures Radiology/Procedures []CT Head IMPRESSION: 1. No acute intracranial process. 2. Deep brain stimulator leads entering the bilateral frontal lobes with tips in the ipsilateral subthalamic regions, respectively. Resultant streak artifact. Course & Med Decision Making Course & Med Decision Making Pertinent Labs and Imaging studies reviewed. (See chart for details) [] Dragon Disclaimer Dragon Disclaimer This electronic medical record was generated, in whole or in part, using a voice recognition dictation system. Departure Departure Impression: Primary Impression: Fall Additional Impressions: Closed head injury Facial abrasion Abrasion of left upper extremity Contusion of left arm Disposition: 01 HOME, SELF-CARE Condition: STABLE Referrals: CCOO BECKFORD (PCP) Patient Instructions: Abrasion, [id number], Concussion and Brain Injury Additional Instructions: Thank you for coming to [facility]. Please read the attached handouts. Please follow-up with your primary care physician. Return to the ER if your symptoms worsen or you have any other concerns. Take ibuprofen or Tylenol [id number] for pain. Problem Qualifiers CYRIL REED DO Nov 18, 2018 11:47
--- NOTE | 2018-11-18 11:55 | RAD ---
CT HEAD WO CONTRAST Date: 11/18/2018 11:00 AM Clinical Indication: trauma, h/o stimulator for parkinsons Comparison: CT head dated 09/03/2012. Technique: 5 mm axial tomographic images were obtained of the head without contrast. These were viewed on brain and bone windows. CT HEAD FINDINGS: Deep brain stimulator leads are seen entering the bilateral frontal lobes with tips in the ipsilateral subthalamic regions, respectively. Streak artifact is noted from the devices which limits evaluation of some portions of the exam. Allowing for this limitation, the brain parenchyma is normal in attenuation. No intra- or extra-axial mass or fluid collection. No acute hemorrhage. The ventricles are normal in size, shape, and morphology. The lei-white matter junction is normal. The basilar cisterns are patent. The paranasal sinuses are clear. The orbits are normal. The globes are intact. The mastoid air cells are clear. No aggressive osseous lesion or fracture. IMPRESSION: 1. No acute intracranial process. 2. Deep brain stimulator leads entering the bilateral frontal lobes with tips in the ipsilateral subthalamic regions, respectively. Resultant streak artifact. Electronically signed by: Zach Diaz MD (11/18/2018 11:53 AM) [facility]
== END 2018-11-18 12:25 | disposition home or self-care (01) ==
LOC: ER 10:24
DX: S40.022A Contusion of left upper arm, initial encounter (principal); S00.81XA Abrasion of other part of head, initial encounter; F31.9 Bipolar disorder, unspecified; E03.9 Hypothyroidism, unspecified; E78.00 Pure hypercholesterolemia, unspecified; Z88.0 Allergy status to penicillin; W18.39XA Other fall on same level, initial encounter; Y93.89 Activity, other specified; Y92.89 Other specified places as the place of occurrence of the external cause; Y99.8 Other external cause status
CPT/HCPCS: 70450; 99284-25

== ENCOUNTER 2019-06-30 14:35 | Emergency (ER) | payer MEDICARE, OTHER ==
[~2019-06-30] VITALS: Ht 152.4 cm; Wt 68.0 kg
[~2019-06-30 14:35] MED LIST changes: -DULO60CA44 PO; +DULO60CA45 PO
[2019-06-30 15:47] VITALS: BP 142/61
[2019-06-30] MEDS ORDERED: fentaNYL PF VIAL 100 MCG/2 ML VIAL IM STA (15:48)
--- NOTE | 2019-06-30 15:52 | PHYS DOC ---
Past Medical History Past Medical History: Anxiety, Bipolar, Constipation, Depression, High Ch olesterol, Hypothyroid, Hypotension, Other Additional Past Medical Histor: PARKINSONS, INSOMNIA Past Surgical History: Appendectomy, Tubal ligation, Other Additional Past Surgical Histo: R WRIST, L SHOULDER, ANKLE, STIMULATOR IN BRAIN, BREAST SX Alcohol Use: None Drug Use: None Adult General Chief Complaint Chief Complaint: MECHANICAL FALL HPI HPI Patient is a 68 year old female who fell down around 2:00 PM in a parking lot. She had negative loss of consciousness, is not on blood thinners. She has frequent falls due to Parkinson's. She rates her pain 10 out of 10 in severity and sharp. She states that she's having pain under her right breast, she is having right upper arm and shoulder pain, right forearm pain, right hand pain. Review of Systems Review of Systems Constitutional: Denies fever or chills [] Eyes: Denies change in visual acuity, redness, or eye pain [] HENT: Denies nasal congestion or sore throat [] Respiratory: Denies cough or shortness of breath [] Cardiovascular: No additional information not addressed in HPI [] GI: Denies abdominal pain, nausea, vomiting, bloody stools or diarrhea [] : Denies dysuria or hematuria [] Musculoskeletal: Reports R arm pain. Integument: Reports abrasions to R arm. Neurologic: Denies headache, focal weakness or sensory changes [] Endocrine: Denies polyuria or polydipsia [] Complete systems were reviewed and found to be within normal limits, except as documented in this note. Current Medications Current Medications Current Medications Medications (Trade) Dose Ordered Sig/[facility] Start Time Stop Time Status Last Admin Dose Admin Fentanyl Citrate (Fentanyl 2ml Vial) 50 mcg 1X STAT 06/30/19 15:48 06/30/19 15:50 DC 06/30/19 16:07 50 MCG Allergies Allergies Allergies Coded Allergies Type Severity Reaction Last Updated Verified Penicillins Allergy Intermediate 09/02/17 Yes Physical Exam Physical Exam Constitutional: Well developed, well nourished, no acute distress, non-toxic appearance. [] HENT: Normocephalic, atraumatic, bilateral external ears normal, oropharynx moist, no oral exudates, nose normal. [] Eyes: PERRLA, EOMI, conjunctiva normal, no discharge. [] Neck: Normal range of motion, no tenderness, supple, no stridor. [] Cardiovascular:Heart rate regular rhythm, no murmur [] Lungs & Thorax: Bilateral breath sounds clear to auscultation [] Abdomen: Bowel sounds normal, soft, no tenderness, no masses, no pulsatile masses. [] Skin: abrasion to right forearm and hand. Back: No tenderness, no CVA tenderness. [] Extremities: Tenderness to R shoulder, humerus, forearm, wrist, and hand. Tenderness to R chest. Neurologic: Alert and oriented X 3, normal motor function, normal sensory function, no focal deficits noted. [] Psychologic: Affect normal, judgement normal, mood normal. [] Current Patient Data Vital Signs Vital Signs Date Time Temp Pulse Resp B/P (MAP) Pulse Ox O2 Delivery O2 Flow Rate FiO2 06/30/19 16:07 18 06/30/19 15:47 98.0 73 142/61 (88) 96 Room Air 98.0 EKG EKG [] Radiology/Procedures Radiology/Procedures [address] [id number] IMAGING REPORT Signed PATIENT: NIKITA DENISE ACCOUNT: [id number] : 1950 LOCATION: ER AGE: 68 SEX: F EXAM STATUS: REG ER ORD. PHYSICIAN: AALIYAH WALKER APRN REASON: Trauma, Mechanical fall on right side PROCEDURE: RIBS RIGHT AND PA CHEST Exam: Chest with right RIBS INDICATION: Trauma TECHNIQUE: Frontal view of chest with frontal and oblique views of the right ribs Comparisons: None FINDINGS: Bilateral generators overlying the chest wall. The cardiomediastinal silhouette and pulmonary vessels are within normal limits. The lung and pleural spaces are clear. No displaced rib fractures. IMPRESSION: 1. No acute cardiopulmonary process. 2. No displaced rib fractures. Electronically signed by: Collins Holley MD (06/30/2019 5:31 PM) [facility] DICTATED and SIGNED BY: COLLINS HOLLEY MD DATE: 06/30/19 1731 [][address] [id number] IMAGING REPORT Signed PATIENT: NIKITA DENISE ACCOUNT: [id number] : 1950 LOCATION: ER AGE: 68 SEX: F EXAM STATUS: REG ER ORD. PHYSICIAN: AALIYAH WALKER APRN REASON: Trauma, Mechanical fall on right side PROCEDURE: FOREARM RIGHT Study: 1. HUMERUS RIGHT 2. FOREARM RIGHT 3. WRIST 3V RIGHT 4. HAND RIGHT 3V 5. SHOULDER 2+V RIGHT Indication: Trauma. Mechanical fall onto the right side. Comparison: 07/02/2018; 05/26/2018; 05/25/2018 Findings: Right shoulder: Acute, mildly displaced fracture through the greater tuberosity. No glenohumeral joint dislocation. AC joint alignment is maintained. Stimulator device projecting over the chest wall. Right humerus: No acute fracture of the more distal humerus. No gross malalignment at the elbow joint. Right forearm: No acute fracture. Right wrist: No acute fracture or malalignment. Right hand: No acute fracture or malalignment. Osteopenia. Scattered mild degenerative changes. Impression: Radiographic evaluation is performed of the right shoulder, humerus, forearm, wrist and hand. The most notable finding involves the shoulder where a mildly displaced fracture is seen to involve the greater tuberosity. No fracture or malalignment seen elsewhere throughout the right upper extremity. Electronically signed by: JENS VU MD (06/30/2019 5:32 PM) [facility] DICTATED and SIGNED BY: JENS VU MD DATE: 06/30/19 173 Course & Med Decision Making Course & Med Decision Making Pertinent Labs and Imaging studies reviewed. (See chart for details) Will give pain medication and get imaging. Imaging shows mildly displaced fracture to the greater tubeorsity of the R humerus. Discussed with Dr. Montiel who recommends shoulder sling and follow up in 2 weeks. Will send patient home on [place] and Zofran for pain. Dragon Disclaimer Dragon Disclaimer This electronic medical record was generated, in whole or in part, using a voice recognition dictation system. Departure Departure Impression: Primary Impression: Greater tuberosity of humerus fracture Disposition: 01 HOME, SELF-CARE Condition: STABLE Referrals: UNKNOWN PCP NAME (PCP) LISETTE MONTIEL II, MD Patient Instructions: Humerus Fracture, Treated with Immobilization Additional Instructions: Thank you for visiting [facility]. We appreciate you trusting us with your care. If any additional problems come up don't hesitate to return to visit us. Please follow up with your primary care provider so they can plan additional care if needed and know about the problem that you had. If symptoms worsen come back to the Emergency Department. Any concerning symptoms that start such as chest pain, shortness of air, weakness or numbness on one side of the body, running high fevers or any other concerning symptoms return to the ER. Please follow up with Ortho in 2 weeks. Please wear sling. Please fill your medications at any pharmacy and follow the prescription instructions. Scripts Hydrocodone/Apap 5-325 (NORCO 5-325 TABLET) 1 Each Tablet 1 TAB PO PRN Q6HRS PRN for PAIN for 3 Days, #12 TAB 0 Refills Prov: AALIYAH WALKER APRN 06/30/19 Ondansetron (ONDANSETRON ODT) 4 Mg Tab.rapdis 1 TAB PO PRN Q6-8HRS PRN for NAUSEA, #16 TAB Prov: AALIYAH WALKER APRN 06/30/19 Problem Qualifiers Primary Impression: Greater tuberosity of humerus fracture Fracture type: closed Fracture alignment: displaced Laterality: right Fracture healing: with routine healing AALIYAH WALKER APRN Jun 30, 2019 15:52
--- NOTE | 2019-06-30 17:34 | RAD ---
Exam: Chest with right RIBS INDICATION: Trauma TECHNIQUE: Frontal view of chest with frontal and oblique views of the right ribs Comparisons: None FINDINGS: Bilateral generators overlying the chest wall. The cardiomediastinal silhouette and pulmonary vessels are within normal limits. The lung and pleural spaces are clear. No displaced rib fractures. IMPRESSION: 1. No acute cardiopulmonary process. 2. No displaced rib fractures. Electronically signed by: Collins Agarwal MD (06/30/2019 5:31 PM) [facility]
--- NOTE | 2019-06-30 17:35 | RAD ---
Study: 1. HUMERUS RIGHT 2. FOREARM RIGHT 3. WRIST 3V RIGHT 4. HAND RIGHT 3V 5. SHOULDER 2+V RIGHT Indication: Trauma. Mechanical fall onto the right side. Comparison: 07/02/2018; 05/26/2018; 05/25/2018 Findings: Right shoulder: Acute, mildly displaced fracture through the greater tuberosity. No glenohumeral joint dislocation. AC joint alignment is maintained. Stimulator device projecting over the chest wall. Right humerus: No acute fracture of the more distal humerus. No gross malalignment at the elbow joint. Right forearm: No acute fracture. Right wrist: No acute fracture or malalignment. Right hand: No acute fracture or malalignment. Osteopenia. Scattered mild degenerative changes. Impression: Radiographic evaluation is performed of the right shoulder, humerus, forearm, wrist and hand. The most notable finding involves the shoulder where a mildly displaced fracture is seen to involve the greater tuberosity. No fracture or malalignment seen elsewhere throughout the right upper extremity. Electronically signed by: JENS VU MD (06/30/2019 5:32 PM) [facility]
[2019-06-30] MEDS ORDERED: ONDA4TAB12 PO (18:09)
[2019-06-30] MEDS ORDERED: HYDR-3164 PO (18:09)
== END 2019-06-30 18:32 | disposition home or self-care (01) ==
LOC: ER 14:35
DX: S42.251A Displaced fracture of greater tuberosity of right humerus, initial encounter for closed fracture (principal); S50.811A Abrasion of right forearm, initial encounter; S60.511A Abrasion of right hand, initial encounter; E78.00 Pure hypercholesterolemia, unspecified; E03.9 Hypothyroidism, unspecified; F41.9 Anxiety disorder, unspecified; F31.9 Bipolar disorder, unspecified; Z88.0 Allergy status to penicillin; W18.39XA Other fall on same level, initial encounter; Y93.89 Activity, other specified; Y92.481 Parking lot as the place of occurrence of the external cause; Y99.8 Other external cause status
CPT/HCPCS: 71101; 73030; 73060; 73090; 73110; 73130; 96372; 99284; J3010

== ENCOUNTER → 2020-06-08 | Outpatient (CLI) | payer MEDICARE, OTHER ==
[2019-07-29 11:00] VITALS: BP 120/59
[~2020-06-08] MED LIST changes: +ALBU2.5V8 NEB; +ALEN70TA3 PO; +CHOL400T6 PO; +CLON0.1T12 PO; +IOHEXOL 300 MG/ML 50 ML VIAL. INT ART ONE; +LIDOCAINE 1% Multi-Dose 20 ML VIAL. ID ONE; +MELA5TAB20 PO; +ONDA4TAB12 PO
--- NOTE | 2020-06-08 16:34 | KCIC ---
FLUOROSCOPICALLY GUIDED RIGHT SHOULDER ARTHROGRAM 1. INDICATION: The patient is a 69 years old Female who presented with right shoulder pain concerning for rotator cuff tear. 2. CONSENT: The risks, benefits, treatment options, potential complications and personnel to be involved were discussed (including the risks of radiation exposure, instruments to be used, contrast and anesthesia administration) with the patient. All questions were answered and consent was obtained. The patient indicated willingness to proceed. 3. GENERAL: a) Medication Reconciliation: The patient's medications and allergies were reviewed in the electronic medical record and reconciled to the proposed procedure/treatment. b) Positioning: The patient was placed Supine on the fluoroscopy table. c) The shoulder was then sterilely prepped and draped. d) Time Out: A time out was performed immediately prior to procedure start with the nursing, anesthesia and interventional team, correctly identifying the patient name, date of , procedure, anatomy (including marking of site and side), patient position, procedure consent form, relevant diagnostic and radiology test results, antibiotic administration, safety precautions, and procedure-specific equipment needs. Procedure Start Time / Timeout Time: 14:58 e) Anesthesia Type: Local anesthesia: 2 mL 1% Lidocaine 4. PROCEDURE: a) Procedure Details: A 20g spinal needle was inserted into the shoulder joint. 1 mL Omnipaque 300 was injected to confirm intra-articular placement of needle. Contrast was observed to flow into the intra-articular space of the joint without significant resistance. 10 mL of injectate was administered into the joint . The needle was removed. Images were stored to the permanent digital archive documenting needle position. b) Injectate Contents: 15 mL Omnipaque 300 5 mL Normal Saline c) Estimated Blood Loss: 0 mL RADIATION DOSE: Fluoroscopic Radiation Summary: Fluoro time: 0:15 min:sec POST PROCEDURE: a) Hemostasis: Hemostasis was achieved using light manual compression. b) Procedure End Time: 15:08 c) Conclusion: The patient was discharged from the radiology department in stable condition. COMPLICATIONS: a) Significant Patient Complication: None If other, explain: b) Complications during the procedure: None If other, explain: 5. RESULTS: Contrast was injected into the joint. 6. IMPRESSION: SUCCESSFUL FLUOROSCOPICALLY GUIDED ARTHROGRAM OF THE RIGHT SHOULDER DESCRIBED ABOVE. Electronically signed by: Derrick Coyne DO (06/08/2020 4:31 PM) [id number]
--- NOTE | 2020-06-08 16:57 | KCIC ---
CT ARTHROGRAM RIGHT SHOULDER CLINICAL HISTORY: Right shoulder pain concerning for rotator cuff tear. History of greater tuberosity fracture. TECHNIQUE: Serial axial images obtained through the right shoulder following intra-articular injection of iodinated contrast with sagittal and coronal reconstructions. Procedural portion of the arthrogram reported separately. CT Dose Reduction Employed: One or more of the following individualized dose reduction techniques were utilized for this examination: 1. Automated exposure control 2. Adjustment of the mA and/or kV according to patient size 3. Use of iterative reconstruction technique. COMPARISON: Right shoulder radiographs 08/28/2019 FINDINGS: Large near full-thickness articular sided supraspinatus tendon tear involving the posterior two thirds of the tendon with small full-thickness fissuring strongly suggested. Small full-thickness articular sided infraspinatus tendon tear in the anterior third of the tendon. No full-thickness subscapularis tendon tear. Teres minor tendon intact. Long head biceps tendon intact and appropriately located. Muscles within normal limits. Glenohumeral joint alignment maintained. No full-thickness chondral defect visualized. Posterior labral degeneration without discrete tear. Acromioclavicular joint maintained. Remote healed greater tuberosity fracture. No acute fracture. No destructive osseous lesion. Neural stimulator within the anterior subcutaneous soft tissues of the right upper chest. IMPRESSION: Full-thickness supraspinatus and infraspinatus tendon tearing/fissuring as described. Remote healed greater tuberosity fracture. Electronically signed by: Derrick Coyne DO (06/08/2020 4:54 PM) [id number]
== END ==
LOC: KCIC 14:17
PROVIDERS: ATTEND Physician Assistant
DX: M75.101 Unspecified rotator cuff tear or rupture of right shoulder, not specified as traumatic (principal); I10 Essential (primary) hypertension; E78.5 Hyperlipidemia, unspecified; E03.9 Hypothyroidism, unspecified; Z88.0 Allergy status to penicillin; F41.9 Anxiety disorder, unspecified; E78.00 Pure hypercholesterolemia, unspecified; F32.9 Major depressive disorder, single episode, unspecified; Z98.890 Other specified postprocedural states; Z79.899 Other long term (current) drug therapy
CPT/HCPCS: 23350; 73201; 77002; J3490; Q9967; 73040

== ENCOUNTER → 2020-07-13 | Outpatient (CLI) | payer MEDICARE, OTHER ==
[2019-07-29 11:00] VITALS: BP 120/59
[~2020-07-13] MED LIST changes: -IOHEXOL 300 MG/ML 50 ML VIAL. INT ART ONE; -LIDOCAINE 1% Multi-Dose 20 ML VIAL. ID ONE
[2020-07-13 11:06] LABS: ALBUMIN 3.8 g/dL (3.4-5.0); ANION GAP 9 (6-14); BLOOD UREA NITROGEN 14 mg/dL (7-20); CALCIUM 9.2 mg/dL (8.5-10.1); CARBON DIOXIDE 29 mmol/L (21-32); CHLORIDE 103 mmol/L (98-107); CREATININE 0.8 mg/dL (0.6-1.0); GFR 71.5; GLUCOSE 142 mg/dL (70-99); POTASSIUM 4.4 mmol/L (3.5-5.1); SODIUM 141 mmol/L (136-145)
[2020-07-13 11:09] LABS: C-REACTIVE PROTEIN < 0.5 mg/L (0-3.3)
--- NOTE | 2020-07-13 11:27 | EKG ---
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
[2020-07-13 11:42] LABS: BASO # 0.1 x10^3/uL (0.0-0.2); BASO % 1 % (0-3); EOS # 0.3 x10^3/uL (0.0-0.7); EOS % 6 % (0-3); HEMATOCRIT 39.2 % (36.0-47.0); HEMOGLOBIN 13.3 g/dL (12.0-15.5); LYMPH # 1.3 x10^3/uL (1.0-4.8); LYMPH % 26 % (24-48); MEAN CORPUSCULAR HEMOGLOBIN 31 pg (25-35); MEAN CORPUSCULAR HGB CONC 34 g/dL (31-37); MEAN CORPUSCULAR VOLUME 90 fL (79-100); MONO # 0.3 x10^3/uL (0.0-1.1); MONO % 7 % (0-9); NEUT # 3.1 x10^3/uL (1.8-7.7); NEUT % 60 % (31-73); PLATELET COUNT 216 x10^3/uL (140-400); RED BLOOD COUNT 4.37 x10^6/uL (3.50-5.40); RED CELL DISTRIBUTION WIDTH 12.9 % (11.5-14.5); WHITE BLOOD COUNT 5.2 x10^3/uL (4.0-11.0)
[2020-07-13 12:22] LABS: PROTHROMBIN TIME PATIENT 12.7 SEC (11.7-14.0)
--- NOTE | 2020-07-13 14:27 | RAD ---
EXAM: Chest, 2 views. HISTORY: Preoperative evaluation. COMPARISON: 06/30/2019 FINDINGS: 2 views of chest are obtained. There is no infiltrate, pleural effusion or pneumothorax. There are deep thalamic stimulator generators overlying the bilateral chest and neck. The heart is normal in size. IMPRESSION: No acute pulmonary finding. Electronically signed by: Selena Mcghee MD (07/13/2020 2:24 PM) [facility]
[2020-07-14 00:10] LABS: HEMOGLOBIN A1C 5.6 % (4.8-5.6)
== END ==
LOC: SURGPAT 10:04
PROVIDERS: ATTEND Orthopaedic Surgery
DX: Z01.818 Encounter for other preprocedural examination (principal); S46.011D Strain of muscle(s) and tendon(s) of the rotator cuff of right shoulder, subsequent encounter; Z96.611 Presence of right artificial shoulder joint; X58.XXXD Exposure to other specified factors, subsequent encounter
CPT/HCPCS: 36415; 71046; 80048; 82040; 82306; 83036; 85025; 85610; 85730; 86140; 87641; 93005

== ENCOUNTER → 2020-07-31 | Outpatient (CLI) | payer MEDICARE, OTHER ==
[2019-07-29 11:00] VITALS: BP 120/59
[~2020-07-31] MED LIST changes: +OXYC5CAP PO
== END ==
LOC: LAB 11:09
PROVIDERS: ATTEND Orthopaedic Surgery
DX: Z01.812 Encounter for preprocedural laboratory examination (principal); Z20.828 Contact with and (suspected) exposure to other viral communicable diseases; S46.011D Strain of muscle(s) and tendon(s) of the rotator cuff of right shoulder, subsequent encounter; X58.XXXD Exposure to other specified factors, subsequent encounter
CPT/HCPCS: U0003

== ENCOUNTER → 2020-09-08 | Day surgery (SDC) | payer MEDICARE, OTHER ==
[~2020-09-08] VITALS: Ht 152.4 cm; Wt 72.6 kg
[~2020-09-08] MED LIST changes: +CALC-463 PO; +CEPH750C9 PO; +DEXAMETHASONE SOD PHOS 4 MG/ML VIAL ONE; +HYDROmorphone 2 MG/ML VIAL IV PRN; +IV RINGERS,LACTATED 1000ML 1,000 ML IV SCH; +LIDOCAINE 1% PF 2 ML VIAL. ID PRN; +LIDOCAINE 2% PF 5 ML VIAL. ONE; +MORPHINE SULFATE 2 MG/ML VIAL. IV PRN; +OMEP20TA8 PO; +ONDANSETRON PF 4 MG/2 ML VIAL. IV PRN; +ONDANSETRON PF 4 MG/2 ML VIAL. ONE; +PROCHLORPERAZINE 10 MG/2 ML VIAL. IV PRN; +PROPOFOL 10 MG/ML (20ML) VIAL. IV ONE; +ROCURONIUM 50 MG/5 ML VIAL. ONE; +SEVOFLURANE 61 TO 120 MINUTES. IH ONE; +fentaNYL PF VIAL 100 MCG/2 ML VIAL IV PRN; +fentaNYL PF VIAL 100 MCG/2 ML VIAL ONE
[2020-09-08] MEDS: fentaNYL PF VIAL 100 MCG/2 ML VIAL IV PRN ×2 (15:25→15:55)
--- NOTE | 2020-09-08 15:42 | DISCH ---
DISCHARGE INSTRUCTIONS Condition on Discharge Condition on Discharge: Stable Activity After Discharge Activity Instructions for Disc: Activity as tolerated Bathing Instructions: Shower-keep dressing dry Lifting Instructions after Dis: No heavy lifting, No pulling or pushing, Do not lift >10 pounds Exercise Instruction after Dis: Progress as tolerated Weight Bearing Status after Di: No restrictions Diet after Discharge Diet after Discharge: Regular Diet Texture: Regular Liquid Texture: Thin Liquid Swallowing Supervision: None needed Wound Incision Care Wound/Incision Care: Ice to area for comfort, Do not change dressing Contacting the DRHoang after DC Call your doctor for: Concerns you may have Follow-Up Follow up with: Dr. Mueller 1 week JELLY MUELLER MD Sep 08, 2020 15:42
[2020-09-08 16:40] VITALS: BP 134/51
--- NOTE | 2020-09-08 20:20 | PDOC4 ---
Operative Note Operative Note Date of surgery: 09/08/2020 Preoperative diagnosis: Right deltopectoral incision wound at midpoint Postoperative diagnosis: Same with good granulation tissue at base and slight wound slough with no deep communication Operative procedure: Debridement skin mobilization and wound closure right shoulder about 2 and half centimeters in length Surgeon: Ami Judicial Administrative Assistant: Phani tello Anesthesia: General Estimated blood loss: 10 cc Complications: None Operative indications: Please see my orthopedic clinic note for detailed operative indications and note that we were undergoing some wound care with moist to dry dressing changes for a difficult healing area with some slight serous drainage at the midpoint of her deltopectoral incision for a reverse shoulder arthroplasty. Wound was not probing deep but despite presence of some granulation tissue she kept developing some wound slough and really no progress toward granulating and closure. We had previously discussed the possibility of operative treatment with debridement and closure and given the limited progress patient and family want to proceed with the debridement and closure procedure and Chandrika gave informed consent to proceed Operative text: Patient was identified procedure verified patient placed in the supine position on the operating table with the T-Max headrest. After adequate amounts of general anesthesia were administered she was placed in a semibeachchair position all bony prominences were well-padded and the right shoulder prepped and draped in standard sterile fashion. Debridement of the approximately 2-1/2 x 1 cm wide wound was carried out sharply with a curette and after debridement of any wound slough and necrosis fat she had good healing tissue beneath no deep penetration or communication was noted. Thorough irrigation carried out normal saline solution and after thorough debridement the skin edges were mobilized and bleeding points controlled by bipolar electrocautery to avoid any interaction with her brain stimulator. Closure accomplished with nylon horizontal mattress sutures and sterile dressings were applied patient was returned to recovery room in stable condition having tolerated the procedure well. Phani tello was present for the procedure assisted in patient positioning prepping draping closure and dressings JELLY YOON MD Sep 08, 2020 20:19
== END | disposition home or self-care (01) ==
LOC: SURG 12:31
PROVIDERS: ATTEND Orthopaedic Surgery
DX: L92.9 Granulomatous disorder of the skin and subcutaneous tissue, unspecified (principal); E78.00 Pure hypercholesterolemia, unspecified; J45.909 Unspecified asthma, uncomplicated; K21.9 Gastro-esophageal reflux disease without esophagitis; M19.90 Unspecified osteoarthritis, unspecified site; E03.9 Hypothyroidism, unspecified; F41.9 Anxiety disorder, unspecified; F32.9 Major depressive disorder, single episode, unspecified; M81.0 Age-related osteoporosis without current pathological fracture; Z98.51 Tubal ligation status; Z98.890 Other specified postprocedural states; Z79.899 Other long term (current) drug therapy; Z88.0 Allergy status to penicillin; Z20.828 Contact with and (suspected) exposure to other viral communicable diseases
CPT/HCPCS: 11042; 87426; A4461; C9803; J0690; J1100; J2405; J2704; J3010; U0003